=== PATIENT | female | born 1945 | race Caucasian/White ===

== ENCOUNTER 2025-04-17 10:37 | Emergency (ER) | payer MEDICARE, SELFPAY ==
--- NOTE | ~2025-04-17 | XR_ITS ---
EXAMINATION: XR shoulder RT min 2V DATE: 04/17/2025 11:32 INDICATION: Right shoulder injury post fall onto hardwood floor TECHNIQUE: AP internally and externally rotated, AP oblique externally rotated and transscapular Y views of the right shoulder were obtained. COMPARISON: None FINDINGS: Normal alignment. No fracture.Severe right acromioclavicular osteoarthritis. Mild to moderate glenohumeral osteoarthritis. Small subacromial spurs. Visualized portion of the lungs are clear. Soft tissues are unremarkable. IMPRESSION: Severe right acromioclavicular and mild to moderate glenohumeral osteoarthritis. No acute osseous abnormality. Reviewed, dictated and finalized at location A. CTOR OF FIELD COORDINATION IMPRESSION: Severe right acromioclavicular and mild to moderate glenohumeral osteoarthritis . No acute osseous abnormality.
[2025-04-17 10:48] VITALS: BP 114/44; PULSE 60; RESP 20; TEMP 36.4; O2SAT 98
--- NOTE | 2025-04-17 10:55 | ED.UPPEXIN ---
HPI - Extremity Injury (Upper) General Chief Complaint: Extremity Injury, Upper Stated Complaint: Right Shoulder Pain/Abdominal Pain Time Seen by Provider: 04/17/25 10:56 Source: patient, RN notes reviewed, old records reviewed and other (home health caregiver) Mode of arrival: wheelchair Limitations: no limitations History of Present Illness HPI narrative: 79 year old female presents per wheelchair accompanied by home help worker with complaints of fall in her home onto the hardwood floor 9 days ago with no LOC,reports she did not hit her head, patient is on blood thinners Patient reports pain to her right shoulder with full ROM noted, no bruising. Patient states she just tripped causing fall, home health worker reports that patient is suppose to use walker and she is not consistent with using it. Patient also reports that she has some lower abdominal pain and some urinary frequency for the past week,states that she has had UTI's in the past.Patient reports that she is in the process of changing doctors and did call new doctors office and was told that she hadn't been seen as new patient yet to go to ED. Patient reports that she has not taken her am medications yet this morning because her caregiver hadn't filled her medication dispenser. Cautioned that her blood pressure was low today that she should be monitoring at home and keep record. She saw her present MD nurse practitioner earlier this month that she can follow up with them prior to new MD appointment. MD complaint: injury to: right and shoulder Onset (ago): day(s) (9 days ago) Other injuries: none Handedness: right Place: home Severity scale (1-10): 9 Treatments prior to arrival: other (Tylenol) Related Data Home Medications ?Medication ?Instructions ?Recorded ?Confirmed ?Last Taken ?Type amlodipine 10 mg tablet mg 04/17/25 Unknown History apixaban 5 mg tablet (Eliquis) mg 04/17/25 Unknown History atorvastatin 40 mg tablet mg 04/17/25 Unknown History buspirone 5 mg tablet mg 04/17/25 Unknown History citalopram 20 mg tablet mg 04/17/25 Unknown History clopidogrel 75 mg tablet mg 04/17/25 Unknown History furosemide 20 mg tablet mg 04/17/25 Unknown History lisinopril 40 mg tablet mg 04/17/25 Unknown History metoprolol tartrate 50 mg tablet mg 04/17/25 Unknown History omeprazole 20 mg capsule,delayed mg 04/17/25 Unknown History release Allergies Allergy/AdvReac Type Severity Reaction Status Date / Time No Known Allergies Allergy Verified 04/17/25 10:57 Review of Systems Review of Systems: CONSTITUTIONAL: Denies fever, chills, or sweats. EYES: Denies visual changes, redness, or discharge. ENT: Denies rhinorrhea, congestion, sore throat, or otalgia. CARDIOVASCULAR: Denies chest pain, palpitations, or edema. RESPIRATORY: Denies cough or dyspnea. GASTROINTESTINAL: Reports lower abdominal pain,with urinary frequency, denies any nausea, vomiting, or diarrhea. GENITOURINARY: Denies dysuria, states some supra puvic discomfort and urinary frequency no hematuria or flank pain.. SKIN: Denies rash or itching. MUSCULOSKELETAL: Denies back pain, reports right shoulder pain from fall, or myalgia. NEUROLOGIC: Denies headache, numbness, or weakness. PSYCHIATRIC: Reports history of anxiety or depression. All systems reviewed & are unremarkable except as noted in HPI and below PMFSH Past Medical History Medical History (Updated 04/18/25 @ 14:16 by Rose Eugene APRN) GERD (gastroesophageal reflux disease) Skin cancer Hypertension UTI (urinary tract infection) Pneumonia CHF (congestive heart failure) COPD (chronic obstructive pulmonary disease) Surgical History Surgical History (Updated 04/17/25 @ 11:28 by Rose Eugene APRN) History of left knee replacement Status post surgical removal of malignant neoplasm of skin Hx of appendectomy History of cholecystectomy History of hysterectomy Social History Social History (Updated 04/17/25 @ 11:20 by Rose Eugene APRN) Smoking packs per day: 0.5 Smoking cigarettes per day: 10.0 Years smoked: 50 Smoking pack-years: 25.00 Smoking status: Current every day smoker Tobacco type: cigarettes Alcohol intake: never Substance use: never Living arrangements: with family Gender identity (if verbalized by the patient): Female Comments At time of signature, agree with nursing past medical, surgical, social and family history. There is no relevant family history pertinent to the presenting complaint Exam Narrative: GENERAL: chronic ill-appearing, well-nourished, unkept clothes dirty,and in no acute distress. HEAD: Normocephalic, atraumatic. EYES: PERRLA and EOMI. ENT: Nares clear, no rhinorrhea or epistaxis. Mucous membranes moist.TM's normal throat pink with no swelling. NECK: Supple.no lymphadenopathy CHEST: Clear to auscultation. No respiratory distress. no cough noted SAO2 98% on room air HEART: Regular rate and rhythm. No murmur heard. Normal peripheral pulses. ABDOMEN: Soft, tender over suprapubic area nondistended, normal active bowel sounds.reports urinary frequency denies any flank pain EXTREMITIES: Normal range of motion. No edema. Reports right shoulder pain since fall which patient reports occurred 9 days ago with no stated LOC, denies hitting head, Reports that she tripped states that right knee needs to be replaced but not surgical candidate.Patient reports that pain to shoulder increases with movement, equipment planner full ROM of shoulder noted pulses palpable to right arm of adequate quality. SKIN: Warm, dry, no rash. NEURO: No focal deficits. Alert and oriented x3. Course Course Level of Care: Express Care Visit Vital Signs Vital signs: Vital Signs Temperature 36.4 C 04/17/25 10:48 Pulse Rate 60 04/17/25 10:48 Respiratory Rate 20 04/17/25 10:48 Blood Pressure 114/44 L 04/17/25 10:48 Pulse Oximetry 98 04/17/25 10:48 Oxygen Delivery Room Air 04/17/25 10:48 Temperature 36.4 C 04/17/25 10:48 Pulse Rate 60 04/17/25 10:48 Respiratory Rate 20 04/17/25 10:48 Blood Pressure 100/46 L 04/17/25 12:00 Pulse Oximetry 98 04/17/25 10:48 Oxygen Delivery Room Air 04/17/25 10:48 reviewed MDM MDM Narrative Medical decision making narrative: 79 year old female presents to express care with youth care worker with complaints of fall 9 days ago hitting her right shoulder on hardwood floor with continued pain to shoulder voiced, Patient reports no LOC at time of fall and did not hit head, patient is on daily blood thinners but reports she doesn't know why she takes Eliquis and Plavix both. She states she takes Plavix to keep her from having stroke. Patient also has complaints of suprapubic pain and urinary frequency for 1 week with stated history of previous URI's with urine nitrite positive with leukocytes and blood present in urine dip. x-ray shows no fracture but degenerative changes to right shoulder. Antibiotic ordered of Augmentin for UTI. Patient instructed to use topical OTC medications to right shoulder and use Tylenol for pain. Patient also instructed to monitor blood pressure and keep record. Anticipatory guidance and reviewed reasons to seek care in the ED with understanding voiced. Instructed to call prewsent physician's office for follow up. Differential Diagnosis Differential Diagnosis: Differential diagnostic considerations for female urogenital? issues include urinary tract infection, bacterial vaginosis, cervicitis, ovarian cyst, vaginitis, STI exposure, ovarian torsion, ectopic , cyst of Bartholin?s gland, cystitis, dysmenorrhea.?? Differential diagnostic considerations for upper extremity injury include sprain/strain of wrist, fracture of wrist, finger sprain, dislocation of finger, fracture of hand, dislocation of shoulder, fracture of humerus, fracture of clavicle, laceration, tendon injury, carpal tunnel syndrome.? Lab Data MDM Lab Attestation statement: I personally reviewed the patient's lab results. Lab results narrative: Urine dip: glucose negative bilirubin negative ketone negative specific gravity 1.025 blood 1+ pH 6.0 protein 1+ urobilinogen 0.2 nitrite positive leukocyte 2+ Labs: Lab Results 04/17/25 Range/Units 11:20 POC Urine Color Yellow POC Urine Clarity Cloudy POC Urine pH 6.0 POC Ur Specif [place] 1.025 POC Urine Protein 1+ (Negative) POC Ur Glucose (UA) Negative (Negative) POC Urine Ketones Negative (Negative) POC Urine Blood 1+ (Negative) POC Urine Nitrite Positive (Negative) POC Urine Bilirubin Negative (Negative) POC Urine Urobilinogen 0.2 POC U Leukocyte Esteras 2+ (Negative) reviewed Imaging Data Attestation: I personally reviewed and interpreted this imaging study as follows: My impression: no fracture, severe right acromioclavicular and mild to moderate glenohumeral osteoarthritis Radiologist's impression: ITS Impressions Shoulder X-Ray 04/17/25 11:45 IMPRESSION: Severe right acromioclavicular and mild to moderate glenohumeral osteoarthritis. No acute osseous abnormality. [address] [place] [address] XRay Report Signed Patient: KatheGabyTheresa J : 1945 MR#: [id number] Age: 79 Acct:[id number] Loc: [facility] ADM Date: 04/17/[address]: Ordering Physician: Rose Eugene APRN Date of Service: 04/17/25 Procedure(s): XR shoulder RT min 2V Accession Number(s): [id number] cc: Kailey Cruz MD; Rose Eugene APRN~ EXAMINATION: XR shoulder RT min 2V DATE: 04/17/2025 11:32 INDICATION: Right shoulder injury post fall onto hardwood floor TECHNIQUE: AP internally and externally rotated, AP oblique externally rotated and transscapular Y views of the right shoulder were obtained. COMPARISON: None FINDINGS: Normal alignment. No fracture.Severe right acromioclavicular osteoarthritis. Mild to moderate glenohumeral osteoarthritis. Small subacromial spurs. Visualized portion of the lungs are clear. Soft tissues are unremarkable. IMPRESSION: Severe right acromioclavicular and mild to moderate glenohumeral osteoarthritis. No acute osseous abnormality. Reviewed, dictated and finalized at location A. NE LATHE OPERATOR Please be advised this is a medical document. It is intended for [id number] communication. It is written in medical language and may contain unfamiliar abbreviations or verbiage. Medical documents are intended to carry relevant information, facts as evident, and the clinical opinion of the practitioner at the time of the encounter. This report may have been done utilizing a voice recognition system. Attempts have been made to correct errors. However, there may be uncorrected grammatical, spelling, and recognition errors present. The file time of this note does not necessarily represent the time of service. Dictated By: Duy Godoy MD 04/17/25 1145 Signed By: <Electronically signed by Duy Godoy MD in OV> Critical Care Time Critical Care Time Critical Care Time: No Discharge Plan Discharge Clinical Impression: Pain in right shoulder, Acute UTI Patient Disposition: Home Condition: Stable Instructions: Antibiotic Form, Urinary Tract Infection in Women (ED), Osteoarthritis (ED) Additional Instructions: Increase fluids especially cranberry juice and water Avoid caffeine and carbonated beverages Antibiotic as directed Tylenol/ for pain or fever Follow-up with her primary care provider if further problems or concerns Recheck if you have fever over 101, nausea and vomiting. may use Salonpas, Myron Mendenhall with lidocaine topical to right shoulder or Tylenol follow-up with orthopedic surgeon if continued problems with shoulder monitor your blood pressure and keep record follow-up with your physician you can take Tylenol arthritis for your pain only since you are on blood thinners If your symptoms persist, change or worsen significantly before you can contact your personal physician then please, without delay, go to the emergency department for further evaluation. Follow-up with PCP in 7-10 days or sooner if needed stop smoking Patient Language: Jordanian Prescriptions: New amoxicillin-pot clavulanate 875-125 mg tablet 1 tablet PO Q12H Qty: 20 0RF Rx Instructions: take with food recommend you take a probiotic or eat Activia yogurt while on this medication No Action atorvastatin 40 mg tablet buspirone 5 mg tablet clopidogrel 75 mg tablet citalopram 20 mg tablet amlodipine 10 mg tablet metoprolol tartrate 50 mg tablet omeprazole 20 mg capsule,delayed release(DR/EC) furosemide 20 mg tablet lisinopril 40 mg tablet Eliquis 5 mg tablet Follow-up/Referrals: Anthony,MD Kailey [Primary Care Provider, [facility]] Time of Disposition: 11:56 Quality [place] Coma Scale Eyes: Open Verbal: Oriented and Alert Motor: Follows Commands [place] Coma Total Score: 15
--- OUTSIDE RECORDS SUMMARY | 2025-04-17 11:09 | XMS_ITS | Encounter Summary ---
Author Organization [facility] Address [address] [place] [address] Care Team Providers Care Dry Cell Tester Name Role Phone Unavailable Primary Care Provider Unavailabl e Encounter Details Date Type Department Care Team (Late st Contact Info) Description 03/01/2020 Lab Requisition [facility] [address] [place] [id number] Tirso Kim Jr., MD [address] [place] [address] Social History Tobacco Use Types Packs/Day Years Used Date Smoking Tobacco: Never Assessed Comments Unknown Sex and Gender Information Value Date Recorded Sex Assigned at Not on file Legal Sex Female 12:52 PM 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 Gender Identity Not on file Sexual Orientation Not on file documented as of this encounter Plan of Treatment Not on file documented as of this encounter Procedures Procedure Name Priority Date/Time Associated Diagnosis Comments DERMATOPATHOLOGY Routine 02/29/2020 12:0 0 AM 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 documented in this encounter Results * DERMATOPATHOLOGY (02/29/2020 12:00 AM 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) Case Report Dermatopathology Report Case: [id number] Authorizing Provider: Tirso Kim Jr., MD Collected: 02/29/2020 12:00 AM Ordering Location: [facility] Received: 03/01/2020 01:11 PM Pathologist: Humphrey Fernandez MD Specimens: A) - Skin, left lateral caodaism B) - Skin, left tragus C) - Skin, right nasal ala D) - Skin, right inferior central malar cheek E) - Skin, upper sternum F) - Skin, middle sternum G) - Skin, right medial superior chest H) - Skin, left anteriior lateral proximal upper arm I) - Skin, left proximal dorsal forearm J) - Skin, right superior latreal upper back K) - Skin, left superior medial upper back L) - Skin, left superior lateral lower back 0 5:20 PM 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 DERMATOPATHOLOGY LABORATORY Final Diagnosis Specimen A. SKIN, left lateral caodaism: BASAL CELL CARCINOMA, NODULAR TYPE (C44.319) Specimen B. SKIN, left tragus: BASAL CELL CARCINOMA, PIGMENTED (C44.219) Specimen C. SKIN, right nasal ala: ACTINIC KERATOSIS (L57.0) CHRONIC PERIFOLLICULITIS (L73.8) (see microscopic description) Specimen D. SKIN, right inferior central malar cheek: BASAL CELL CARCINOMA, INFILTRATIVE PATTERN (C44.319) Specimen E. SKIN, upper sternum: BASAL CELL CARCINOMA, PIGMENTED (C44.519) Specimen F. SKIN, middle sternum: SEBORRHEIC KERATOSIS, MACULAR (L82.1) POST-INFLAMMATORY PIGMENT ALTERATION (L81.9) Specimen G. SKIN, right medial superior chest: LICHEN PLANUS-LIKE KERATOSIS (BENIGN LICHENOID KERATOSIS) (L82.1) Specimen H. SKIN, left anteriior lateral proximal upper arm: BASAL CELL CARCINOMA, NODULAR TYPE (C44.619) Specimen I. 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 SKIN, right superior latreal upper back: BASAL CELL CARCINOMA, NODULAR TYPE (C44.519) Specimen K. SKIN, left superior medial upper back: BASAL CELL CARCINOMA, NODULAR TYPE (C44.519) Specimen L. SKIN, left superior lateral lower back: BASAL CELL CARCINOMA, SUPERFICIAL MULTIFOCAL (C44.519) 0 5:20 PM 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 DERMATOPATHOLOGY LABORATORY at 1720 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 Clinical History A-B: Basal cell carcinoma. C: Basal cell carcinoma vs dilated pore. D-H: Basal cell carcinoma. G: Squamous cell carcinoma vs irritated seborrheic keratosis. . 0 5:20 PM 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 DERMATOPATHOLOGY LABORATORY Gross Description Specimen A: Received is one formalin filled container labeled with the patient's name and designated left lateral caodaism. The specimen consists of a shave biopsy (2 pieces) measuring [id number], bisected, & [id number]. Jar 0. Specimen B: Received is one formalin filled container labeled with the patient's name and designated left tragus. The specimen consists of a shave biopsy measuring [id number]. Jar 0. Specimen C: Received is one formalin filled container labeled with the patient's name and designated right nasal ala. The specimen consists of a shave biopsy measuring [id number]. Jar 0. Specimen D: Received is one formalin filled container labeled with the patient's name and designated right inferior central malar cheek. The specimen consists of a shave biopsy measuring [id number]. Jar 0. Specimen E: Received is one formalin filled container labeled with the patient's name and designated upper sternum. The specimen consists of a shave biopsy measuring [id number]. Jar 0. Specimen F: Received is one formalin filled container labeled with the patient's name and designated middle sternum. The specimen consists of a shave biopsy measuring [id number]. Jar 0. Specimen G: Received is one formalin filled container labeled with the patient's name and designated right medial superior chest. The specimen consists of a shave biopsy measuring [id number]. Jar 0. Specimen H: Received is one formalin filled container labeled with the patient's name and designated left anteriior lateral proximal upper arm. The specimen consists of a shave biopsy measuring 20q3i1of. Jar 0. Specimen I: Received is one formalin filled container labeled with the patient's name and designated left proximal dorsal forearm. The specimen consists of a shave biopsy measuring [id number]. Jar 0. Specimen J: Received is one formalin filled container labeled with the patient's name and designated right superior latreal upper back. The specimen consists of a shave biopsy measuring 1u3a8pl. Jar 0. Specimen K: Received is one formalin filled container labeled with the patient's name and designated left superior medial upper back. The specimen consists of a shave biopsy measuring 0e4u9by. Jar 0. Specimen L: Received is one formalin filled container labeled with the patient's name and designated left superior lateral lower back. The specimen consists of a shave biopsy measuring [id number]. Jar 0. 0 5:20 PM [facility] DERMATOPATHOLOGY LABORATORY Microscopic Description Specimen A. SKIN, left lateral caodaism: Within the dermis there are aggregates of basaloid cells with a high nuclear to cytoplasmic ratio and peripheral palisading. Specimen B. SKIN, left tragus: There are aggregates of basaloid cells with a high nuclear to cytoplasmic ratio and peripheral palisading. There is abundant melanin. Specimen C. SKIN, right nasal ala: There is focal parakeratosis. The lower half of the epidermis shows disorderly maturation of keratinocytes with nuclear pleomorphism. Sections show a perifollicular lymphohistiocytic infiltrate. Additional deeper sections were obtained and reviewed. Specimen D. SKIN, right inferior central malar cheek: Within the dermis there are nodular aggregates of basaloid cells associated with fibromyxoid stroma and epithelial-stromal clefts. At the advancing margin of the neoplasm, there are smaller angulated nests that infiltrate the dermis. Specimen E. SKIN, upper sternum: There are aggregates of basaloid cells with a high nuclear to cytoplasmic ratio and peripheral palisading. There is abundant melanin. Specimen F. SKIN, middle sternum: Sections show a relatively broad, flat proliferation of small keratinocytes. The surface is gently papillated, and there is increased basilar pigmentation. Sections show abundant melanin within melanophages around the superficial vascular plexus. Specimen G. SKIN, right medial superior chest: The epidermis is mildly acanthotic. There is a lichenoid infiltrate with vacuolar changes of basilar keratinocytes and scattered necrotic keratinocytes. Specimen H. SKIN, left anteriior lateral proximal upper arm: Within the dermis there are aggregates of basaloid cells with a high nuclear to cytoplasmic ratio and peripheral palisading. Specimen I. SKIN, left proximal dorsal forearm: Sections reveal parakeratosis, acanthosis and keratinocyte dysmaturation which is most prominent in the lower epidermis. Focal nests are present in the dermis. Specimen J. SKIN, right superior latreal upper back: Within the dermis there are aggregates of basaloid cells with a high nuclear to cytoplasmic ratio and peripheral palisading. Specimen K. SKIN, left superior medial upper back: Within the dermis there are aggregates of basaloid cells with a high nuclear to cytoplasmic ratio and peripheral palisading. Specimen L. SKIN, left superior lateral lower back: Attached to the undersurface of the epidermis, there are small aggregates of basaloid cells with a high nuclear to cytoplasmic ratio and peripheral palisading. 0 5:20 PM [facility] DERMATOPATHOLOGY LABORATORY Disclaimer An external and internal positive and negative controls are appropriate for the histochemical, immunohistochemical and immunofluorescence stain(s) in this case (if any), except where stated explicitly. The performance characteristics of the stain(s) cited in this report were developed and its performance characteristic determined by the Dermatopathology Laboratory at [facility], directed by Dr. Mitali Fernandez. These tests need not be, and therefore are not, approved by the [place] Food and Drug Administration. The tests are used for clinical purposes. Billing Codes Specimen Charges Stain Charges 05496 [id number] [id number] 1 1 1 1 1 1 1 1 1 1 1 1 0 5:20 PM 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 DERMATOPATHOLOGY LABORATORY Embedded Images 0 5:20 PM 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 DERMATOPATHOLOGY LABORATORY Pathology/Cytology TISSUE SPECIMEN FROM SKIN / Unknown 02/29/2020 03/01/2020 1:11 PM 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 Miscellaneous samples (specimen) TISSUE SPECIMEN FROM SKIN / Unknown 02/29/2020 03/01/2020 1:11 PM 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 Miscellaneous samples (specimen) TISSUE SPECIMEN FROM SKIN / Unknown 02/29/2020 03/01/2020 1:11 PM 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 Miscellaneous samples (specimen) TISSUE SPECIMEN FROM SKIN / Unknown 02/29/2020 03/01/2020 1:11 PM 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 Miscellaneous samples (specimen) TISSUE SPECIMEN FROM SKIN / Unknown 02/29/2020 03/01/2020 1:11 PM 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 Miscellaneous samples (specimen) TISSUE SPECIMEN FROM SKIN / Unknown 02/29/2020 03/01/2020 1:11 PM 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 Miscellaneous samples (specimen) TISSUE SPECIMEN FROM SKIN / Unknown 02/29/2020 03/01/2020 1:11 PM 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 Miscellaneous samples (specimen) TISSUE SPECIMEN FROM SKIN / Unknown 02/29/2020 03/01/2020 1:11 PM 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 Miscellaneous samples (specimen) TISSUE SPECIMEN FROM SKIN / Unknown 02/29/2020 03/01/2020 1:11 PM 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 Miscellaneous samples (specimen) TISSUE SPECIMEN FROM SKIN / Unknown 02/29/2020 03/01/2020 1:11 PM 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 Miscellaneous samples (specimen) TISSUE SPECIMEN FROM SKIN / Unknown 02/29/2020 03/01/2020 1:11 PM 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 Miscellaneous samples (specimen) TISSUE SPECIMEN FROM SKIN / Unknown 02/29/2020 03/01/2020 1:11 PM 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 us Tirso Kim Jr., MD LAB - PATHOLOGY/CYTOLOG Y ORDERABLES Final Result DERMATOPATHOLOGY LABORATORY [facility] - Department of Dermatology [facility] [address] [place] [address], [address] [phone] documented in this encounter Visit Diagnoses Not on filedocumented in this encounter
--- OUTSIDE RECORDS SUMMARY | 2025-04-17 11:09 | XMS_ITS | Clinical Summary ---
Author Organization [facility] Address [address] [place] [address] Care Team Providers Care Chore Tender Name Role Phone Unavailable Primary Care Provider Unavailabl e Source Comments [facility] Resource Interactive,non-owned Affiliates and Associated Physician Practices is amultiple site organization consisting of ambulatory clinics and hospital sitesin [place], [place], [place] and [place]. This disclosure is being madepursuant to the Care Everywhere program and may not contain all information available regarding this patient. 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 Gender Identity Not on file Sexual Orientation Not on file Plan of Treatment Health Maintenance Due Date Last Done Comments BONE DENSITY TESTING 1945 DTAP/TDAP/TD VACCINES (1 - Tdap) 11/14/1962 PNEUMOCOCCAL VACCINE 50+ (1 of 1 - PCV) 11/14/1993 ZOSTER VACCINE (1 of 2) 11/14/1993 Respiratory Syncytial Virus (RSV) Vaccine Pt: or over 60 yrs (1 - 1-dose 75+ series) 11/14/2018 DEPRESSION SCREENING 04/20/2024 MEDICARE AWV CALENDAR YEAR 2024 COVID-19 VACCINE ( - 2024-2 6 season) 2024 INFLUENZA VACCINE (#1) 2024 9, 05/15/2017, 12/19/2012 HEPATITIS B VACCINE Aged Out No longe r eligible based on patient's age to complete this topic HIB VACCINE Aged Out No longer eligi ble based on patient's age to complete this topic HPV VACCINE Aged Out No longer eligi ble based on patient's age to complete this topic MENINGOCOCCAL (Group B) VACCINE SHARED DECISION-MAKING Aged Out No longer eligible based on patient's age to complete this topic MENINGOCOCCAL GROUPS A/C/Y/W VACCINE Aged Out No longer eligible b ased on patient's age to complete this topic Insurance [employer] MANAGED MEDICARE ADV
--- OUTSIDE RECORDS SUMMARY | 2025-04-17 11:09 | XMS_ITS | Encounter Summary ---
Author Organization [facility] Address [address] [place] [address] Care Team Providers Care Block Layer Name Role Phone Chavez Orellana MD Primary Care Provider [phone] Edy Perez MD Unavailable Prakash Bryan MD Unavailable [phone] Hira Buchanan MD Primary Care Provider [phone] Patrick Velasco MD Unavailable Encounter Details Date Type Department Care Team (Late st Contact Info) Description 08/13/2022 Telephone [facility] Cardiac Catheterization [address] [place] [address] Beverly Rosales RN Social History Tobacco Use Types Packs/Day Years Used Date Smoking Tobacco: Former Cigarettes Q uit: 07/10/2022 Smokeless Tobacco: Never Comments:Smoking History Pac ks/day: 1 Packs Alcohol Use Standard Drinks/Week Comments No 0 (1 standard drink = 0.6 oz pur e alcohol) AUDIT-C Answer Date Recorded Q1: How often do you have a drink containing alc ohol? Never 07/24/2022 Average Number of Drinks Not on file 023 Frequency of Binge Drinking Not on file 09/2022 Overall Financial Resource Strain (CARDIA) Answe r Date Recorded Difficulty of Paying Living Expenses Somewhat prakash rd 03/29/2019 PHQ-2 Answer Date Recorded PHQ-2 Total Score (If total score is 3 or more points, staff should administer the PHQ-9) 0 02/21/2022 [facility] [place] of Occupat ional Health - Occupational Stress Questionnaire Answer Date Recorded Feeling of Stress Only a little 03/29/2019 Exercise Vital Sign Answer Date Recorde d Days of Exercise per Week 0 days 2018 Minutes of Exercise per Session 0 min 03/29/2019 PRAPARE - Transportation Answer Date Re corded Lack of Transportation (Medical) Yes 05/12/2019 Lack of Transportation (Non-Medical) Yes 05/12/2019 Personal Safety Answer Date Recorded Have you ever been in or are you currently in a harmful physical or emotional relationship or is someone making you feel afraid or unsafe? 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 Gender Identity Not on file Sexual Orientation Not on file Occupation Industry Job Start Date Job End Date retired Not on file Not on file Not on file documented as of this encounter Plan of Treatment Upcoming Encounters Date Type Department Care Team (Late st Contact Info) Description 09/01/2025 9:09 AM CDT Hospital Encounter [facility] [address] [place] [address] Patrick Velasco MD [address] [place] [address] Prakash Bryan MD [address] [place] [address] 09/01/2025 9:09 AM CDT - 09/01/2025 9:39 AM CDT Surgery [facility] [address] [place] [address] Prakash Bryan MD [address] [place] [address] COLONOSCOPY Scheduled Procedures Name Priority Associated Diagnoses Date/Ti me COLONOSCOPY Colitis History of colonic polyps 09/01/2025 9:09 AM CDT documented as of this encounter Visit Diagnoses Not on filedocumented in this encounter Additional Health Concerns Infection Onset Date Last Indicated Resolved Time COVID: Suspected 06/09/2024 06/09/2024 06/09/2024 11:03 AM WILDLIFE ECOLOGIST COVID: Suspected 01/08/2025 01/08/2025 01/08/2025 10:42 AM CDT documented as of this encounter Care Teams Block Layer Relationship Specialty Start Date End Date Chavez Orellana MD [address] [place] [address] PCP - General Family Medicine 07/29/17 08/21/23 Hira Buchanan MD [address] [place] [address] PCP - General Internal Medicine 08/22/23 Edy Perez MD [address] [place] [address] Consulting Physician General Surgery 05/06/19 Prakash Bryan MD [address] [place] [address] Consulting Physician Gastroenterology 05/06/19 Patrick Velasco MD [address] [place] [address] [place] [address] Consulting Physician Gastroenterology 05/27/24 documented as of this encounter
--- OUTSIDE RECORDS SUMMARY | 2025-04-17 11:09 | XMS_ITS | Encounter Summary ---
Author Organization [facility] Address [address] [place] [address] Phone Care Team Providers Care Manager [employer] Retail Name Role Phone Hira Buchanan MD Primary Care Provider [phone] Reason for Visit * Reason Comments Medication Refill Encounter Details Date Type Department Care Team (Late st Contact Info) Description 09/16/2023 Refill [facility] - Internal Medicine - [place] [address] [place] [id number] Hira Buchanan MD [address] [place] [address] Medication Refill Social History Tobacco Use Types Packs/Day Years Used Date Smoking Tobacco: Every Day Cigarettes Passive Smoke Exposure: Current Smokeless Tobacco: Never Alcohol Use Standard Drinks/Week Comments No 0 (1 standard drink = 0.6 oz pur e alcohol) [facility] Utilities Answer Date Recorded In the past 12 months has [employer], gas, oil, or water [employer] threatened to shut off services in your home? No 07/09/2023 Social Connection and Isolation Panel Answer Date Recorded In a typical week, how many times do you talk on the phone with family, friends, or neighbors? More than three times a week 07/09/2023 How often do you get togethe r with friends or relatives? More than three times a week 07/09/2023 How often do you attend chur ch or zoroastrian services? Never 07/09/2023 Do you belong to any clubs o r organizations such as mormon groups, unions, fraternal or athletic groups, or school groups? No 07/09/2023 How often do you attend meet ings of the clubs or organizations you belong to? Never 07/09/2023 Are you , , di vorced, , never , or living with a partner? 07/09/2023 AUDIT-C Answer Date Recorded Q1: How often do you have a drink containing alcohol? Never 07/09/2023 Q2: How many drinks containi ng alcohol do you have on a typical day when you are drinking? Patient does not drink Q3: How often do you have si x or more drinks on one occasion? Never 07/09/2023 Overall Financial Resource Strain (CARDIA) Answe r Date Recorded How hard is it for you to pa y for the very basics like food, housing, medical care, and heating? Not hard at all 07/09/2023 PHQ-2 Answer Date Recorded Total Score - Questions 1-9 0 08/18 [facility] of Occupat ional [facility] - Occupational Stress Questionnaire Answer Date Recorded Do you feel stress - tense, restless, nervous, or anxious, or unable to sleep at night because your mind is troubled all the time - these days? Not at all 07/09/2023 Exercise Vital Sign Answer Date Recorde d On average, how many days pe r week do you engage in moderate to strenuous exercise (like a brisk walk)? 0 days 07/09/2023 On average, how many minutes do you engage in exercise at this level? 0 min 07/09/2023 Hunger Vital Sign Answer Date Recorded Within the past 12 months, y ou worried that your food would run out before you got the money to buy more. Never true 07/09/19 24 Within the past 12 months, t he food you bought just didn't last and you didn't have money to get more. Never true 07/09/2023 PRAPARE - Transportation Answer Date Re corded In the past 12 months, has l ack of transportation kept you from medical appointments or from getting medications? No 06/19 In the past 12 months, has l ack of transportation kept you from meetings, work, or from getting things needed for daily living? No 07/09/2023 Housing Stability Vital Sign Answer Blaise e Recorded In the last 12 months, was t here a time when you were not able to pay the mortgage or rent on time? No 07/09/2023 In the last 12 months, how many places have you lived? 6 07/09/2023 In the last 12 months, was t here a time when you did not have a steady place to sleep or slept in a senior living (including now)? No 07/09/2023 Education Answer Date Recorded What is the highest level of school you have completed or the highest degree you have received? GED or equivalent Sexually Active [employer] Comments Not Currently Comments No Sex and Gender Information Value Date Recorded Sex Assigned at Female 09/29/2023 10:49 AM CDT Legal Sex Female 11:44 PM CDT Gender Identity Female 09/29/2023 10:49 AM CDT Sexual Orientation Not on file documented as of this encounter Miscellaneous Notes * Telephone Encounter - Alisa Wallis RN - 09/16/2023 8:07 AM CDT Medication(s) refilled and signed per [facility] Chronic Medication Refill Standing Order for Pediatricand Adult Patients. Requested Prescriptions Pending Prescriptions Disp Refills metoprolol tartrate (LOPRESSOR) 50 MG Tablet [Pharmacy Med Name: Metoprolol Tartrate 50 MG Oral Tablet] 60 Tablet 0 Sig: Take 1 tablet by mouth twice daily Beta-Blockers Protocol Passed - 09/16/2023 6:50 AM Passed - BP on record in the past year Clinician-entered: BP Readings from Last 3 Encounters: 07/09/23 110/66 12/11/22 110/64 09/04/22 110/62 Patient-entered: No data recorded Passed - Visit with relevant provider in past 12 months or upcoming 90 days Recent Visits Date Type Provider Dept 07/09/23 Office Visit [facility] [place] 12/11/22 Office Visit [facility] [place] Showing recent visits within past 365 days and meeting all other requirements Future Appointments No visits were found meeting these conditions. Showing future appointments within next 90 days and meeting all other requirements documented in this encounter Plan of Treatment Upcoming Encounters Date Type Department Care Team (Late st Contact Info) Description 05/17/2025 9:20 AM MANAGER PAYER Office Visit [facility] - Primary Care - [place] [address] [place] [address] Hira Buchanan MD [address] [place] [address] documented as of this encounter Visit Diagnoses Not on filedocumented in this encounter Additional Health Concerns Infection Onset Date Last Indicated Resolved Time COVID - 19 06/03/2024 06/03/2024 06/03/2024 1:06 PM MANAGER PAYER Assessment Noted Time PHQ-9 Depression Total Score: 0 09/05/19 8:00 AM CDT documented as of this encounter Care Teams Manager [employer] Retail Relationship Specialty Start Date End Date Hira Buchanan MD PCP - General Internal Medicine 09/04/22 documented as of this encounter
--- OUTSIDE RECORDS SUMMARY | 2025-04-17 11:09 | XMS_ITS | Encounter Summary ---
Author Organization [facility] Address [address] [place] [address] Phone Care Team Providers Care Former Hand Name Role Phone Hira Buchanan MD Primary Care Provider [phone] Reason for Visit * Reason Onset Date Comments Medication Refill 09/11/2023 Encounter Details Date Type Department Care Team (Late st Contact Info) Description 09/11/2023 Refill [facility] [place] [phone] Jason Sorenson, PAC [address] [place], [place] [address] Medication Refill Social History Tobacco Use Types Packs/Day Years Used Date Smoking Tobacco: Every Day Cigarettes Passive Smoke Exposure: Current Smokeless Tobacco: Never Alcohol Use Standard Drinks/Week Comments No 0 (1 standard drink = 0.6 oz pur e alcohol) [facility] Utilities Answer Date Recorded In the past 12 months has [employer], gas, oil, or water [employer] threatened to shut off services in your [...] often do you attend chur ch or baptist services? Never 07/09/2023 Do you belong to any clubs o r organizations such as congregational groups, unions, fraternal or athletic groups, or [...] Total Score - Questions 1-9 0 08/18 [facility] of Occupat ional [facility] - Occupational Stress Questionnaire Answer Date Recorded [...] st Contact Info) Description 05/17/2025 9:20 AM SPOOL SALVAGER Office Visit [facility] - Primary Care - [place] [address] [place] [address] Hira Buchanan MD [address] [place] [address] documented as of this encounter Visit Diagnoses Diagnosis Other chronic pain- Primary documented in this encounter Additional Health Concerns Infection Onset Date Last Indicated Resolved Time COVID - 19 06/03/2024 06/03/2024 06/03/2024 1:06 PM SPOOL SALVAGER Assessment Noted Time PHQ-9 Depression Total Score: 0 09/05/19 8:00 AM CDT documented as of this encounter Care Teams Former Hand Relationship Specialty Start Date End Date Hira Buchanan MD PCP - General Internal Medicine 09/04/22 documented as of this encounter
--- OUTSIDE RECORDS SUMMARY | 2025-04-17 11:09 | XMS_ITS | Encounter Summary ---
Author Organization [facility] Address [address] [address] Care Team Providers Care Product Management Specialist Name Role Phone Unavailable Primary Care Provider Unavailabl e Encounter Details Date Type Department Care Team (Late st Contact Info) Description 03/22/2020 Lab Requisition [facility] [address] [place] [address] Tirso Kim Jr., MD [address] [place] [address] Social History Tobacco Use Types Packs/Day Years Used Date Smoking Tobacco: Never Assessed Comments Unknown Sex and Gender Information Value Date Recorded Sex Assigned at Not on file 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 Gender Identity Not on file Sexual Orientation Not on file documented as of this encounter Plan of Treatment Not on file documented as of this encounter Procedures Procedure Name Priority Date/Time Associated Diagnosis Comments DERMATOPATHOLOGY Routine 03/21/2020 12:0 0 AM COOK FROZEN DESSERT documented in this encounter Results * DERMATOPATHOLOGY (03/21/2020 12:00 AM COOK FROZEN DESSERT) Case Report Dermatopathology Report Case: [id number] Authorizing Provider: Tirso Kim Jr., MD Collected: 03/21/2020 12:00 AM Ordering Location: [facility] Received: 03/22/2020 12:22 PM Pathologist: Humphrey Fernandez MD Specimen: Skin, left proximal dorsal forearm 0 4:30 PM [facility] Final Diagnosis Specimen A. 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 Check margins. Previous Bx: [id number]. . 0 4:30 PM [facility] Gross Description Specimen A: Received is one formalin filled container labeled with the patient's name and designated left proximal dorsal forearm.The specimen consists of an ellipse measuring [id number] and is oriented with the notch at the 12 o'clock position labeled on the requisition as notch at 12 o'clock. The 9 to 3 o'clock margin is inked green. The 3 o'clock to 9 o'clock margin is inked black. The 9 o'clock tip is submitted in cassette 1. The 3 o'clock tip is submitted in cassette 2. The remainder of the ellipse is serially sectioned and submitted in cassettes 3-4. Jar 0. 0 4:30 PM [facility] Microscopic Description Specimen A. SKIN, left proximal dorsal forearm: Sections show focally laminated fibroplasia and prominent blood vessels. There are plump fibrocytes and inflammation. Reactive epidermal changes are also identified consistent with a prior biopsy site. No residual squamous cell carcinoma is identified. 0 4:30 PM [facility] Disclaimer An external and internal [...] purposes. Billing Codes Specimen Charges Stain Charges [id number] 0 4:30 PM [facility]ERMATOPATH[facility] Embedded Images 0 4:30 PM [facility] DERMATOP[facility]ORATORY Pathology/Cytolog y TISSUE SPECIMEN FROM SKIN / Unknown 03/21/2020 03/22/2020 12:22 PM COOK FROZEN DESSERT us Tirso Kim Jr., MD LAB - PATHOLOGY/CYTOLOG Y ORDERABLES Final Result DERMATOPATHOLOGY LABORATORY [facility] - Department of Dermatology [facility] [address] [place] [address], [address] [phone] documented in this encounter Visit Diagnoses Not on filedocumented in this encounter
--- OUTSIDE RECORDS SUMMARY | 2025-04-17 11:09 | XMS_ITS | Encounter Summary ---
Author Organization [facility] Address [address] [place] [address] Phone Care Team Providers Care Activities Counselor Name Role Phone Hira Buchanan MD Primary Care Provider [phone] Reason for Visit * Reason Comments Medication Refill Encounter Details Date Type Department Care Team (Late st Contact Info) Description 08/02/2023 Refill [facility] - Internal Medicine - [place] [address] [place] [id number] Hira Buchanan MD [address] [place] [address] Medication Refill Social History Tobacco Use Types Packs/Day Years Used Date Smoking Tobacco: Every Day Cigarettes Passive Smoke Exposure: Current Smokeless Tobacco: Never Alcohol Use Standard Drinks/Week Comments No 0 (1 standard drink = 0.6 oz pur e alcohol) [facility] Utilities Answer Date Recorded In the past 12 months has [employer], gas, oil, or water [employer] threatened to shut off services in your [...] often do you attend chur ch or yazidi services? Never 07/09/2023 Do you belong to any clubs o r organizations such as cheondoism groups, unions, fraternal or athletic groups, or [...] Total Score - Questions 1-9 0 08/18 [facility] of Occupat ional [facility] - Occupational Stress Questionnaire Answer Date Recorded [...] place to sleep or slept in a skilled nursing (including now)? No 07/09/2023 Education Answer Date [...] Telephone Encounter - Alisa Wallis RN - 08/03/2023 11:12 AM CDT Medication failed the protocol, provider to review and approve the medication order if appropriate. Requested Prescriptions Pending Prescriptions Disp Refills furosemide (LASIX) 20 MG Tablet [Pharmacy Med Name: Furosemide 20 MG Oral Tablet] 90 Tablet 0 Sig: Take 1 tablet by mouth once daily Diuretics Protocol Failed - 08/02/2023 3:15 PM Failed - Serum potassium on record in past 12 months POTASSIUM Date Value Ref Range Status 03/30/2022 4.0 3.5 - 5.1 mmol/L Final Failed - Serum sodium on record in past 12 months SODIUM Date Value Ref Range Status 03/30/2022 139 136 - 144 mmol/L Final Failed - GFR on record in past 12 months GFR, EST. NONAFRICAN Date Value Ref Range Status 03/30/2022 >60 >=60 Final Passed - Blood pressure on record in past 12 months Clinician-entered: BP Readings from Last 3 Encounters: 07/09/23 110/66 12/11/22 110/64 09/04/22 110/62 Patient-entered: No data recorded Passed - Visit with relevant provider in past 12 months or upcoming 90 days Recent Visits Date Type Provider Dept 07/09/23 Office Visit Hira Buchanan MD [facility] [place] 12/11/22 Office Visit Hira Buchanan MD [facility] [place] 09/04/22 Office [facility] [place] Showing recent visits within past 365 days and meeting all other requirements Future Appointments No visits were found meeting these conditions. Showing future appointments within next 90 days and meeting all other requirements Eliquis 5 MG Tablet [Pharmacy Med Name: Eliquis 5 MG Oral Tablet] 60 Tablet 0 Sig: TAKE 1 TABLET BY MOUTH TWICE DAILY -NEEDS APPOINTMENT Not Delegated - DOACs Protocol Failed - 08/02/2023 3:15 PM Failed - This refill cannot be delegated Failed - CBC on record in the past year WBC Date Value Ref Range Status 03/30/2022 10.05 4.00 - 12.00 10(3)/mcL Final RBC Date Value Ref Range Status 03/30/2022 4.16 3.80 - 5.30 10(6)/mcL Final HEMATOCRIT (HCT) Date Value Ref Range Status 03/30/2022 38.6 36.0 - 47.0 % Final HEMOGLOBIN (HGB) Date Value Ref Range Status 03/30/2022 12.3 12.0 - 15.8 g/dL Final MCV Date Value Ref Range Status 03/30/2022 92.8 82.0 - 96.0 fL Final MCH Date Value Ref Range Status 03/30/2022 29.6 26.0 - 34.0 pg Final MCHC Date Value Ref Range Status 03/30/2022 31.9 31.0 - 36.0 g/dL Final Failed - CMP on record in the past year SODIUM Date Value Ref Range Status 03/30/2022 139 136 - 144 mmol/L Final POTASSIUM Date Value Ref Range Status 03/30/2022 4.0 3.5 - 5.1 mmol/L Final CHLORIDE Date Value Ref Range Status 03/30/2022 102 100 - 110 mmol/L Final CO2, VENOUS Date Value Ref Range Status 03/30/2022 26 22 - 32 mmol/L Final ANION GAP Date Value Ref Range Status 03/30/2022 15.0 8.0 - 20.0 mmol/L Final GLUCOSE Date Value Ref Range Status 03/30/2022 123 (H) 70 - 99 mg/dL Final BUN Date Value Ref Range Status 03/30/2022 13 8 - 23 mg/dL Final CREATININE, BLOOD Date Value Ref Range Status 03/30/2022 0.65 0.60 - 1.10 mg/dL Final BUN/CREATININE RATIO Date Value Ref Range Status 03/30/2022 20 12 - 20 ratio Final TOTAL PROTEIN Date Value Ref Range Status 03/30/2022 6.4 6.0 - 8.3 g/dL Final ALBUMIN Date Value Ref Range Status 03/30/2022 3.7 3.5 - 5.2 g/dL Final Comment: The colormetric methods used for the determination of Albumin may lead to falsely elevated test results in patients suffering from renal failure or insufficiency due to interference with other proteins. A/G RATIO Date Value Ref Range Status 03/30/2022 1.4 1.0 - 2.0 Final CALCIUM Date Value Ref Range Status 03/30/2022 9.2 8.9 - 10.3 mg/dL Final T BILI Date Value Ref Range Status 03/30/2022 0.3 <=1.2 mg/dL Final SGOT (AST) Date Value Ref Range Status 03/30/2022 13 <=32 U/L Final SGPT (ALT) Date Value Ref Range Status 03/30/2022 13 <=41 U/L Final ALKALINE PHOSPHATASE Date Value Ref Range Status 03/30/2022 88 35 - 105 U/L Final GFR, EST. NONAFRICAN Date Value Ref Range Status 03/30/2022 >60 >=60 Final GFR, EST. Date Value Ref Range Status 03/30/2022 >60 >=60 Final GFR, ESTIMATED Date Value Ref Range Status 03/30/2022 >60 >=60 Final Comment: Creatinine Clearance is the preferred criteria for selecting drug dose adjustments in renally impaired patients. The GFR is provided as additional pertinent clinical information. GFR is reported in mL/min/1.73 sq m. Calculation based on the Chronic Kidney Disease Epidemiology Collaboration (CKD- EPI) equation refitwithout adjustment for race. Failed - Creatinine and GFR on record in the past year CREATININE, BLOOD Date Value Ref Range Status 03/30/2022 0.65 0.60 - 1.10 mg/dL Final GFR, ESTIMATED Date Value Ref Range Status 03/30/2022 >60 >=60 Final Comment: Creatinine Clearance is the preferred criteria for selecting drug dose adjustments in renally impaired patients. The GFR is provided as additional pertinent clinical information. GFR is reported in mL/min/1.73 sq m. Calculation based on the Chronic Kidney Disease Epidemiology Collaboration (CKD- EPI) equation refitwithout adjustment for race. GFR, EST. NONAFRICAN Date Value Ref Range Status 03/30/2022 >60 >=60 Final Passed - Visit with relevant provider in past 12 months or upcoming 90 days Recent Visits Date Type Provider Dept 07/09/23 Office Visit Hira Buchanan MD [facility] [place] 12/11/22 Office Visit Hira Buchanan MD [facility] [place] 09/04/22 Office Visit Hira Buchanan MD [facility] [place] Showing recent visits within past 365 days and meeting all other requirements Future Appointments No visits were found meeting these conditions. Showing future appointments within next 90 days and meeting all other requirements amLODIPine (NORVASC) 10 MG Tablet [Pharmacy Med Name: amLODIPine Besylate 10 MG Oral Tablet] 30 Tablet 0 Sig: TAKE 1 TABLET BY MOUTH ONCE DAILY (MUST MAKE APPOINTMENT) Calcium-Channel Blockers Protocol Passed - 08/02/2023 3:15 PM Passed - BP on record in the past year Clinician-entered: BP Readings from Last 3 Encounters: 07/09/23 110/66 12/11/22 110/64 09/04/22 110/62 Patient-entered: No data recorded Passed - Visit with relevant provider in past 12 months or upcoming 90 days Recent Visits Date Type Provider Dept 07/09/23 Office Visit Hira Buchanan MD [facility] [place] 12/11/22 Office Visit Hira Buchanan MD [facility] [place] 09/04/22 Office Visit Hira Buchanan MD [facility] [place] Showing recent visits within past 365 days and meeting all other requirements Future Appointments No visits were found meeting these conditions. Showing future appointments within next 90 days and meeting all other requirements documented in this encounter Plan of Treatment Upcoming Encounters Date Type Department Care Team (Late st Contact Info) Description 05/17/2025 9:20 AM B2B ACCOUNT EXECUTIVE Office Visit [facility] - Primary Care - [place] [address] [place] [id number] Hira Buchanan MD [address] [place] [address] documented as of this encounter Visit Diagnoses Not on filedocumented in this encounter Additional Health Concerns Infection Onset Date Last Indicated Resolved Time COVID - 19 06/03/2024 06/03/2024 06/03/2024 1:06 PM B2B ACCOUNT EXECUTIVE Assessment Noted Time PHQ-9 Depression Total Score: 0 09/05/19 8:00 AM CDT documented as of this encounter Care Teams Activities Counselor Relationship Specialty Start Date End Date Hira Buchanan MD PCP - General Internal Medicine 09/04/22 documented as of this encounter
--- OUTSIDE RECORDS SUMMARY | 2025-04-17 11:10 | XMS_ITS | Encounter Summary ---
Author Organization [facility] Address [address] [place] [address] Phone Care Team Providers Care Bartacker Name Role Phone Hira Buchanan MD Primary Care Provider [phone] Reason for Visit * Reason Comments Medication Refill Encounter Details Date Type Department Care Team (Late st Contact Info) Description 06/28/2023 Refill [facility] - Internal Medicine - [place] [address] [place] [id number] Hira Buchanan MD [address] [place] [address] Medication Refill Social History Tobacco Use Types Packs/Day Years Used Date Smoking Tobacco: Every Day Cigarettes Passive Smoke Exposure: Current Smokeless Tobacco: Never Alcohol Use Standard Drinks/Week Comments No 0 (1 standard drink = 0.6 oz pur e alcohol) PHQ-2 Answer Date Recorded Total Score - Questions 1-9 0 08/18 Education Answer Date Recorded What is the [...] Telephone Encounter - Alisa Wallis RN - 06/29/2023 9:17 AM CDT Medication failed the protocol, provider to review and approve the medication order if appropriate. Requested Prescriptions Pending Prescriptions Disp Refills Eliquis 5 MG Tablet [Pharmacy Med Name: Eliquis 5 MG Oral Tablet] 180 Tablet 0 Sig: Take 1 tablet by mouth twice daily Not Delegated - DOACs Protocol Failed - 06/28/2023 4:22 PM Failed - This refill cannot be [...] days Recent Visits Date Type Provider Dept 12/11/22 Office Visit Hira Buchanan MD [facility] [place] 09/04/22 Office Visit Hira Buchanan MD [facility] [place] Showing recent visits within past 365 days and meeting all other requirements Future Appointments No visits were found meeting these conditions. Showing future appointments within next 90 days and meeting all other requirements metoprolol tartrate (LOPRESSOR) 50 MG Tablet [Pharmacy Med Name: Metoprolol Tartrate 50 MG Oral Tablet] 60 Tablet 0 Sig: Take 1 tablet by mouth twice daily Beta-Blockers Protocol Passed - 06/28/2023 4:22 PM Passed - BP on record in the past year Clinician-entered: BP Readings from Last 3 Encounters: 12/11/22 110/64 09/04/22 110/62 03/30/22 102/57 Patient-entered: No data recorded Passed - Visit with relevant provider in past 12 months or upcoming 90 days Recent Visits Date Type Provider Dept 12/11/22 Office Visit Hira Buchanan MD [facility] [place] 09/04/22 Office Visit Hira Buchanan MD [facility] [place] Showing recent visits within past 365 days and meeting all other requirements Future Appointments No visits were found meeting these conditions. Showing future appointments within next 90 days and meeting all other requirements amLODIPine (NORVASC) 10 MG Tablet [Pharmacy Med Name: amLODIPine Besylate 10 MG Oral Tablet] 30 Tablet 0 Sig: TAKE 1 TABLET BY MOUTH ONCE DAILY (MUST MAKE APPT) Calcium-Channel Blockers Protocol Passed - 06/28/2023 4:22 PM Passed - BP on record in the past year Clinician-entered: BP Readings from Last 3 Encounters: 12/11/22 110/64 09/04/22 110/62 03/30/22 102/57 Patient-entered: No data recorded Passed - Visit with relevant provider in past 12 months or upcoming 90 days Recent Visits Date Type Provider Dept 12/11/22 Office Visit Hira Buchanan MD [facility] [place] 09/04/22 Office Visit Hira Buchanan MD [facility] Showing recent visits within past 365 days and meeting all other requirements Future Appointments No visits were found meeting these conditions. Showing future appointments within next 90 days and meeting all other requirements atorvastatin (LIPITOR) 40 MG Tablet [Pharmacy Med Name: Atorvastatin Calcium 40 MG Oral Tablet] 30 Tablet 0 Sig: TAKE 1 TABLET BY MOUTH NIGHTLY (MUST MAKE APPT) [facility] CoA Reductase Inhibitors Protocol Failed - 06/28/2023 4:22 PM Failed - Lipid panel in past 12 months No results found for: LDL, HDLCHOLESTE, CHOLESTEROL, TRIGLYCRIDES, VLDL, CHDL, HDLNON Failed - CMP in past 12 months SODIUM Date Value [...] (CKD- EPI) equation refitwithout adjustment for race. Passed - Visit with relevant provider in past 12 months or upcoming 90 days Recent Visits Date Type Provider Dept 12/11/22 Office Visit Hira Buchanan MD [facility] [place] 09/04/22 Office Visit Hira Buchanan MD [facility] [place] Showing recent visits within past 365 days and meeting all other requirements Future Appointments No visits were found meeting these conditions. Showing future appointments within next 90 days and meeting all other requirements omeprazole (PriLOSEC) 40 MG CAPSULE DELAYED RELEASE [Pharmacy Med Name: Omeprazole 40 MG Oral Capsule Delayed Release] 30 Capsule 0 Sig: Take 1 capsule by mouth once daily Proton Pump Inhibitors Protocol Passed - 06/28/2023 4:22 PM Passed - Visit with relevant provider in past 12 months or upcoming 90 days Recent Visits Date Type Provider Dept 12/11/22 Office Visit Hira Buchanan MD [facility] [place] 09/04/22 Office Visit Hira Buchanan MD [facility] [place] Showing recent visits within past 365 days and meeting all other requirements Future Appointments No visits were found meeting these conditions. Showing future appointments within next 90 days and meeting all other requirements documented in this encounter Plan of Treatment Upcoming Encounters Date Type Department Care Team (Late st Contact Info) Description 05/17/2025 9:20 AM RESEARCH PHARMACIST Office Visit [facility] - Primary Care - [place] [address] [place] [address] Hira Buchanan MD [address] [place] [address] documented as of this encounter Visit Diagnoses Not on filedocumented in this encounter Additional Health Concerns Infection Onset Date Last Indicated Resolved Time COVID - 19 06/03/2024 06/03/2024 06/03/2024 1:06 PM RESEARCH PHARMACIST Assessment Noted Time PHQ-9 Depression Total Score: 0 09/05/19 8:00 AM CDT documented as of this encounter Care Teams Bartacker Relationship Specialty Start Date End Date Hira Buchanan MD PCP - General Internal Medicine 09/04/22 documented as of this encounter
--- OUTSIDE RECORDS SUMMARY | 2025-04-17 11:10 | XMS_ITS | Encounter Summary ---
Author Organization [facility] Address [address] [place] [address] Phone Care Team Providers Care Veneer Repairer Machine Name Role Phone Hira Buchanan MD Primary Care Provider [phone] Reason for Visit * Reason Onset Date Comments Advice Only 01/05/2025 Encounter Details Date Type Department Care Team (Late st Contact Info) Description 01/05/2025 Telephone [facility] [address] [place] [address] Hira Buchanan MD [address] [place] [address] Advice Only Social History Tobacco Use Types Packs/Day Years Used Date Smoking Tobacco: Every Day Cigarettes Passive Smoke Exposure: Current Smokeless Tobacco: Never Alcohol Use Standard Drinks/Week Comments No 0 (1 standard drink = 0.6 oz pur e alcohol) [facility] Utilities Answer Date Recorded In the past 12 months has [employer], gas, oil, or water [employer] threatened to shut off services in your [...] often do you attend chur ch or baptism services? Never 07/09/2023 Do you belong to any clubs o r organizations such as uatsdin groups, unions, fraternal or athletic groups, or [...] Recorded Total Score - Questions 1-9 0 06/0 08/2024 [facility] of Occupat ional [facility] - Occupational Stress Questionnaire Answer Date [...] encounter Miscellaneous Notes * Telephone Encounter - Coty Lee RN - 01/06/2025 8:49 AM CDT Theresa Archuleta notified, verbalized understanding. * Telephone Encounter - Roxanna Whitehead APRN, CNP - 01/05/2025 4:26 PM CDT She should be feeling somewhat better after 3-4 days, if over the weekend she feels worse, go to PC * Telephone Encounter - Cecilia Hunter RN - 01/05/2025 1:12 PM CDT Situation: advice only Background: Patient contacting PCP office. Patient states she was seen in the office and prescribed an antibiotic and she is wondering how long it takes to make her feel better. She states her cough is a little better and her breathing is a little better but she is tired of being sick. Patient coughing while on phone. Assessment: Upon chart review, patient was seen in office on 01/02/25 and prescribed azithromycin and prednisone. She reports starting then about noon on 01/02/25. Patient would like to know when she will be feeling a lot better and when she should call back. Recommendation: Please advise patient on when she should start feeling a lot better and when she should call back if not feeling a lot better. Patient requests a call back with advice. Encounter routed to provider to notify. Discussed utilizing [facility] to: discuss if they would prefer a MyChart message or phone call response. Response is preferred via Phone Call. documented in this encounter Plan of Treatment Upcoming Encounters Date Type Department Care Team (Late st Contact Info) Description 05/17/2025 9:20 AM VENEER PRESS OPERATOR Office Visit [facility] - Primary Care - [place] [address] [place] [address] Hira Buchanan MD [address] [place] [address] documented as of this encounter Visit Diagnoses Not on filedocumented in this encounter Additional Health Concerns Assessment Noted Time PHQ-9 Depression Total Score: 0 09/23/19 25 12:05 PM CDT documented as of this encounter Care Teams Veneer Repairer Machine Relationship Specialty Start Date End Date Hira Buchanan MD PCP - General Internal Medicine 09/04/22 documented as of this encounter
--- OUTSIDE RECORDS SUMMARY | 2025-04-17 11:10 | XMS_ITS | Clinical Summary ---
Author Organization [facility] Address [address] [place] [address] Phone Care Team Providers Care Dog Pound Attendant Name Role Phone Hira Buchanan MD Primary Care Provider [phone] Allergies Active Allergy Reactions Criticality Noted Date Comments Propoxyphene Hallucinations Diphenhydramine-Acetaminophen Anxiety 2015 Oxycodone-Aspirin Hallucinations Medications Diclofenac Sodium (VOLTAREN) 1 % Gel Apply 2 g 4 times daily. 100 g 10/09/19 24 Active Additional Information Patient not taking.Reported on 02/01/2025 metOLazone (ZAROXOLYN) 2.5 MG Tablet TAKE 1 TABLET BY MOUTH EVERY OTHER DAY 45 Tablet 11/12/19 25 Active Eliquis 5 MG Tablet Take 1 tablet by mouth twice daily 60 Tablet 5 11/15/19 25 Active metoprolol tartrate (LOPRESSOR) 50 MG Tablet Take 1 Tablet by mouth 2 times daily. 180 Tablet 1 12/06/19 25 Active traMADol (ULTRAM) 50 MG TabletIndicatio ns:Right knee pain, unspecified chronicity TAKE 1 TABLET BY MOUTH EVERY 8 HOURS NEEDED FOR MILD OR MORE SEVERE PAIN 21 Tablet 12/09/19 25 Active atorvastatin (LIPITOR) 40 MG Tablet Take 1 tablet by mouth nightly 90 Tablet 1 12/17/19 25 Active omeprazole (PriLOSEC) 20 MG CAPSULE DELAYED RELEASE Take 1 capsule by mouth once daily 90 Capsule 1 12/17/19 25 Active traZODone (DESYREL) 50 MG Tablet TAKE 1 TABLET BY MOUTH NIGHTLY NEEDED FOR SLEEP 90 Tablet 12/31/19 25 Active albuterol 108 (90 Base) MCG/ACT Aerosol Solution INHALE 2 PUFFS BY MOUTH EVERY 6 HOURS NEEDED FOR WHEEZING 18 g 01/03/20 25 Active amLODIPine (NORVASC) 10 MG Tablet Take 1 tablet by mouth once daily 30 Tablet 3 02/18/20 25 Active clopidogrel (PLAVIX) 75 MG Tablet Take 1 tablet by mouth once daily 90 Tablet 02/29/20 25 Active busPIRone (BUSPAR) 5 MG Tablet TAKE 1 TABLET BY MOUTH THREE TIMES DAILY 270 Tablet 03/14/20 25 Active lisinopril (PRINIVIL, ZESTRIL) 40 MG Tablet Take 1 tablet by mouth once daily 90 Tablet 03/22/20 25 Active potassium chloride CR (KLORCON) 10 MEQ Tablet Controlled Release Take 1 tablet by mouth once daily 90 Tablet 03/29/20 25 Active furosemide (LASIX) 20 MG Tablet Take 1 tablet by mouth once daily 90 Tablet 04/10/20 25 Active citalopram (CeleXA) 20 MG Tablet Take 1 tablet by mouth once daily 30 Tablet 04/10/20 25 Active ondansetron (ZOFRAN) 4 MG Tablet TAKE 1 TABLET BY MOUTH EVERY 8 HOURS NEEDED FOR NAUSEA 15 Tablet 04/10/20 25 Active lisinopril (PRINIVIL, ZESTRIL) 40 MG Tablet Take 1 tablet by mouth once daily 30 Tablet 2 12/17/19 25 025 Discontinued potassium chloride CR (KLORCON) 10 MEQ Tablet Controlled Release Take 1 tablet by mouth once daily 90 Tablet 12/31/19 25 025 Discontinued furosemide (LASIX) 20 MG Tablet Take 1 tablet by mouth once daily 90 Tablet 12/31/19 25 025 Discontinued ondansetron (ZOFRAN) 4 MG Tablet TAKE 1 TABLET BY MOUTH EVERY 8 HOURS NEEDED FOR NAUSEA 15 Tablet 02/28/20 25 025 Discontinued citalopram (CeleXA) 20 MG Tablet Take 1 tablet by mouth once daily 30 Tablet 03/13/20 25 025 Discontinued Active Problems Problem Noted Date Diagnosed Date Other hyperlipidemia 09/04/2022 Paroxysmal atrial fibrillation 09/04/2022 Peripheral arterial disease 09/04/2022 Overview (12/11/2022): H/O Stents placement- Left Common Iliac and Left External Iliac arteries Centrilobular emphysema 09/04/2022 GERD without esophagitis 09/04/2022 Nonrheumatic aortic valve disorder 09/04/2022 Generalized anxiety disorder 09/04/2022 Essential hypertension, benign Tobacco abuse Encounters Date Type Department Care Team Description 04/10/20[facility] [address] [place] [address] Hira Buchanan MD Medication Refill 03/29/2025 Refill [facility] [address] [place] [address] Mariah Schilling APRN, [facility] Medication Refill 03/22/2025 [facility] [address] [place] [address] Hira Buchanan MD Medication Refill 03/14/2025 Refill [facility] [address] [place] [address] Fior Ocampo, [facility] Medication Refill 03/13/2025 [facility] [address] [place] [address] Hira Buchanan MD Medication Refill 02/28/2025 Refill [facility] [address] [place] [address] Hira Buchanan MD Medication Refill 02/27/2025 [facility] [address] [place] [address] Hira Buchanan MD Medication Refill 02/17/2025 Refill [facility] [address] [place] [address] Hira Buchanan MD Medication Refill 02/01/2025 10:45 AM CDT Office Visit [facility] - [place] - [place] [address] [place] [address] Fior Ocampo PAC Pneumonia due to infectious organism, unspecified laterality, unspecified part of lung (Primary Dx); Insomnia, unspecified type Discharge Disposition: Discharged to home or Selfcare 02/01/2025 Travel 01/17/2025 [facility]ill [facility] [place] [address] [place] [address] Hira Buchanan MD Medication Refill from Last 3 Months Immunizations Immunization Administration Dates Next Due Influenza Vaccine, Quadrivalent, PF 05/15/2017 Influenza Vaccine,unspecified Formulation 2012 Influenza, High-dose, Quadrivalent 02/21/2022 Influenza, Quadrivalent, Adjuvanted 03/31/2021 Influenza, high-dose, trivalent, PF 03/31/2019 Pneumococcal Vaccine - 13 Valent 11/30/2017 Pneumococcal Vaccine, Unspecified Formulation Pneumococcal conjugate PCV20 , polysaccharide [id number] conjugate, adjuvant, PF 12/11/2022 TDAP Vaccine 08/21/2023,03/21/2013 Tuberculin Skin Test; Purifi ed Protein Derivative Solutiol 09/11/2023,08/30/2023 Family History Relation Name Status Comments Father Mother Social History Tobacco Use Types Packs/Day Years Used Date Smoking Tobacco: Every Day Cigarettes Passive Smoke Exposure: Current Smokeless Tobacco: Never Tobacco Cessation:Ready to Q uit: No; Counseling Given: No Alcohol Use Standard Drinks/Week Comments No 0 (1 standard drink = 0.6 oz pur e alcohol) [facility] Utilities Answer Date Recorded In the past 12 months has [employer], gas, oil, or water company threatened to shut off services in your [...] often do you attend chur ch or samaritan services? Never 07/09/2023 Do you belong to any clubs o r organizations such as baptist groups, unions, fraternal or athletic groups, or [...] Score - Questions 1-9 0 06/0 08/2024 [facility] - Occupational Stress Questionnaire Answer Date [...] AM CDT Sexual Orientation Not on file Last Filed Vital Signs Vital Sign Reading Time Taken Comments Blood Pressure 122/66 02/01/2025 10:45 AM CDT Pulse 60 02/01/2025 10:45 AM CDT Temperature 36.5 C (97.7 F) 02/01/2025 10:45 AM CDT Respiratory Rate 12 02/01/2025 10:45 AM CDT Oxygen Saturation 98% 02/01/2025 10:45 AM CDT Inhaled Oxygen Concentration - - Weight 76.2 kg (168 lb) 02/01/2025 10:45 AM CDT Height 160 cm (5' 3) 01/02/2025 10:44 AM CDT Body Mass Index 29.76 01/02/2025 10:44 AM CDT Plan of Treatment Upcoming Encounters Date Type Department Care Team (Late st Contact Info) Description 05/17/2025 9:20 AM WOOL HAT HYDRAULICKER [facility] Visit [facility] - [place] [address] [place] [id number] Hira Buchanan MD [address] [place] [address] Health Maintenance Due Date Last Done Comments DEXA Bone Density 1945 Hepatitis C Virus (HCV) Screening 1945 Zoster Immunization (1 of 2) 11/14/1993 Medicare Initial AWV [id number] 04/20/2016 Respiratory Syncytial Virus (RSV) Immunization (Adult) (1 - 1-dose 75+ series) 11/14/2018 SARS-COV-2 Immunization ( - season) 2024 04/21/2021, 03/31/2021 Td Immunization Every 10 Years (Adults With 1 Tdap) 08/20/2033 08/21/2023, 03/21/2013 Influenza Immunization Discontinued , 03/31/2021, 03/31/2019, Additional history exists Pneumococcal Immunization (50+ years) Completed 12/11/2022, 11/30/2017, 12/19/2012 Pneumococcal Immunization Combined Discontinued 12/11/2022, 11/30/2017, 12/19/2012 DTaP/Tdap/Td Immunization Discontinued 08/21/2023, 05/2012 Hepatitis B Immunization Aged Out No longer eligible based on patient's age to complete this topic Human Papillomavirus (HPV) Immunization (No Doses Required) Completed Meningococcal Immunization (ACWY) Aged Out No longer eligible based on patient's age to complete this topic Rotavirus Immunization Aged Out No lo nger eligible based on patient's age to complete this topic Insurance [facility]IC[facility] Care Teams Dog Pound Attendant Relationship Specialty Start Date End Date Hira Buchanan MD PCP - General Internal Medicine 09/04/22
--- OUTSIDE RECORDS SUMMARY | 2025-04-17 11:10 | XMS_ITS | Encounter Summary ---
Author Organization [facility] Address [address] [place] [address] Phone Care Team Providers Care Rug Clipper Name Role Phone Hira Buchanan MD Primary Care Provider [phone] Reason for Visit * Reason Comments Medication Refill Encounter Details Date Type Department Care Team (Late st Contact Info) Description 02/25/2024 [facility]ill [facility] [place] [address] [place] [id number] Hira Buchanan MD [address] [place] [address] Medication Refill Social History Tobacco Use Types Packs/Day Years Used Date Smoking Tobacco: Every Day Cigarettes Passive Smoke Exposure: Current Smokeless Tobacco: Never Alcohol Use Standard Drinks/Week Comments No 0 (1 standard drink = 0.6 oz pur e alcohol) [facility] Utilities Answer Date Recorded In the past 12 months has [employer], gas, oil, or water [place] threatened to shut off services in your [...] often do you attend chur ch or cheondoism services? Never 07/09/2023 Do you belong to any clubs o r organizations such as zoroastrianism groups, unions, fraternal or athletic groups, or [...] Total Score - Questions 1-9 0 08/18 [facility] - Occupational Stress Questionnaire Answer Date [...] place to sleep or slept in a jail (including now)? No 07/09/2023 Education Answer Date [...] encounter Miscellaneous Notes * Telephone Encounter - Cecilia Ford RN - 02/25/2024 3:54 PM FLEET COORDINATOR Duplicate. Script sent to pharmacy 02/22/24 T COORDINATOR documented in this encounter Plan of Treatment Upcoming Encounters Date Type Department Care Team (Late st Contact Info) Description 05/17/2025 9:20 AM FLEET COORDINATOR Office Visit [facility] - [facility] - [place] [address] [place] [phone] Hira Buchanan MD [address] [place] [address] documented as of this encounter Visit Diagnoses Not on filedocumented in this encounter Additional Health Concerns Infection Onset Date Last Indicated Resolved Time COVID - 19 06/03/2024 06/03/2024 06/03/2024 1:06 PM FLEET COORDINATOR Assessment Noted Time PHQ-9 Depression Total Score: 0 09/05/19 23 8:00 AM CDT documented as of this encounter Care Teams Rug Clipper Relationship Specialty Start Date End Date Hira Buchanan MD PCP - General Internal Medicine 09/04/22 documented as of this encounter
--- OUTSIDE RECORDS SUMMARY | 2025-04-17 11:10 | XMS_ITS | Clinical Summary ---
Author Organization [facility] [address] [facility] lto Address [address] [place] [address] Care Team Providers Care Studio Producer Name Role Phone Edy Perez MD Unavailable Prakash Bryan MD Unavailable [phone] Hira Buchanan MD Primary Care Provider [phone] Patrick Velasco MD Unavailable Allergies Active Allergy Reactions Criticality Noted Date Comments Diphenhydramine Anxiety Low 12/04/2023 Oxycodone Hallucinations Medium Propoxyphene Hallucinations Medium Medications apixaban (ELIQUIS) 5 mg tabletIndications:a trial fibrillation Take 1 tablet (5 mg total) by mouth every 12 (twelve) hours 180 tablet 3 2 Active amLODIPine (NORVASC) 10 mg tablet Take 1 tablet (10 mg total) by mouth daily 90 tablet 3 Active clopidogreL (PLAVIX) 75 mg tablet Take 1 tablet (75 mg total) by mouth daily 30 tablet 11 3 Active omeprazole (PriLOSEC) 20 mg capsule Take 1 capsule by mouth once daily 90 capsule 3 Active traZODone (DESYREL) 50 mg tablet TAKE 1 TABLET BY MOUTH NIGHTLY NEEDED FOR SLEEP 90 tablet 3 Active busPIRone (BUSPAR) 5 mg tablet TAKE 1 TABLET BY MOUTH THREE TIMES DAILY 90 tablet 3 Active lisinopriL (PRINIVIL,ZESTRIL) 40 mg tablet Take 1 tablet by mouth once daily 90 tablet 3 Active metOLazone (ZAROXOLYN) 2.5 mg tablet Take 1 tablet (2.5 mg total) by mouth every other day 90 tablet 3 Active metoprolol tartrate (LOPRESSOR) 50 mg immediate release tabletIndications:E ssential hypertension Take 1 tablet by mouth twice daily 60 tablet 3 Active potassium chloride ER 10 mEq CR tablet Take 1 tablet by mouth once daily 90 tablet 4 Active atorvastatin (LIPITOR) 40 mg tablet Take 1 tablet (40 mg total) by mouth nightly 4 Active citalopram (CeleXA) 20 mg tablet Take 1 tablet (20 mg total) by mouth daily 4 Active furosemide (LASIX) 20 mg tablet Take 1 tablet (20 mg total) by mouth daily 4 Active acetaminophen 500 mg capsuleIndications: Pain Take 2 capsules (1,000 mg total) by mouth every 6 (six) hours 4 Active ondansetron ODT (ZOFRAN-ODT) 8 mg disintegrating tabletIndications:P revention of Post-Operative Nausea and Vomiting Take 1 tablet (8 mg total) by mouth every 8 (eight) hours as needed for nausea or vomiting 12 tablet 1 4 Active Active Problems Problem Noted Date Diagnosed Date Mild malnutrition 06/16/2024 Constipation 06/08/2024 Colitis 06/08/2024 Abdominal pain 06/07/[address] of the abdomen 05/27/2024 Hypokalemia 05/26/2024 Gastroenteritis 05/25/2024 Gastric mass 05/25/2024 Basal cell carcinoma (BCC) of right cheek 2023 Basal cell carcinoma (BCC) of scalp 11/02/2023 Encounter for medication review 08/26/2023 Assessment & Plan (08/26/2023 11:20 AM CDT): Medication list reviewed [facility] Discharge planning issues 08/24/2023 Assessment & Plan (08/28/2023 2:50 PM CDT): 08/23: Pending PT/OT, patient is requesting to go home instead of to a facility. 08/24: patient now agreeing to placement; case management to meet with patient this morning 08/25: Patient is medically stable for discharge, SW/CM updated. Discharge pending insurance authorization 08/27: discharged Hypomagnesemia 08/24/2023 Assessment & Plan (08/24/2023 8:44 AM CDT): - Mg 1.7, repleted with Mg sulfate 2gm. AM mg level Hyponatremia 08/24/2023 Assessment & Plan (08/24/2023 1:14 PM CDT): Now resolved Atrial fibrillation 08/22/2023 Assessment & Plan (08/24/2023 9:17 AM CDT): - Home Eliquis held - Home Plavix continued - Home ASA continued - Home metoprolol continued Assessment & Plan (08/22/2023 12:19 AM CDT): - holding home eliquis for OR 5/4 Coronary artery disease 08/22/2023 Assessment & Plan (08/24/2023 6:36 AM CDT): - ASA and plavix continued Assessment & Plan (08/22/2023 12:19 AM CDT): - continuing home ASA, holding plavix Fall, initial encounter 08/21/2023 Assessment & Plan (08/22/2023 10:10 AM CDT): See closed fx of R tibial plateau Closed fracture of right tibial plateau 08/21/19 Assessment & Plan (08/26/2023 11:14 AM CDT): - Non-op per ortho - Hinged knee brace unlocked - NWB - PT/OT recommending IPR - Orthopedic surgery signed off, will follow up with patient as outpatient Assessment & Plan (08/22/2023 12:18 AM CDT): - OR with Ortho planned for 08/21, NWB in bulky knee immobilizer, holding plavix and eliquis, continuing ASA Centrilobular emphysema 09/04/2022 Generalized anxiety disorder 09/04/2022 GERD without esophagitis 09/04/2022 Nonrheumatic aortic valve disorder 09/04/2022 Non-rheumatic aortic stenosis 09/01/2022 PAOD (peripheral arterial occlusive disease) CAD in ione artery 07/24/2022 Atherosclerosis of ione ar teries of extremities with intermittent claudication, bilateral legs 07/16/2022 Overview (07/16/2022): Added automatically from request for surgery [id number] Congestive heart failure 07/16/2022 Overview (07/16/2022): Added automatically from request for surgery [id number] Mitral valve insufficiency and aortic valve insu fficiency 07/16/2022 Overview (07/16/2022): Added automatically from request for surgery [id number] Aftercare following left knee joint replacement surgery 09/05/2020 Atrial fibrillation 08/23/2020 Bilateral primary osteoarthritis of knee 021 Odontogenic tumor 10/11/2019 Choledocholithiasis 08/18/2019 Assessment & Plan (08/18/2019 11:43 AM CDT): ERCP in April 2019 with removal of stones and stent placement. Asymptomatic at this time. Will schedule ERCP to remove the stent. Transaminitis 05/03/2019 Class 1 obesity due to exces s calories without serious comorbidity in adult 05/03/2019 Nausea and vomiting 03/25/2019 Overview (03/25/2019): Added automatically from request for surgery [id number] History of colonic polyps 03/25/2019 Overview (03/25/2019): Added automatically from request for surgery [id number] Basal cell carcinoma (BCC) of right shoulder 01/2018 Basal cell carcinoma (BCC) of lower back 018 Anxiety 05/15/2017 Dyslipidemia 05/15/2017 Tobacco abuse 05/01/2016 Overview (05/15/2017): Tobacco use Mixed hyperlipidemia 04/20/2009 Overview (07/26/2016): Hyperlipidemia, unspecified hyperlipidemia type HTN (hypertension) 04/20/2009 Overview (05/15/2017): Essential hypertension Assessment & Plan (08/24/2023 9:18 AM CDT): - Home metoprolol continued - Home Amlodipine 10 held Mild episode of recurrent major depressive disor jessica 04/20/2009 Overview (07/26/2016): Mild episode of recurrent major depressive disorder Cholecystitis Assessment & Plan (08/18/2019 11:42 AM CDT): Status post cholecystectomy in April 2019. Symptoms resolved. Resolved Problems Problem Noted Date Diagnosed Date Resolved Date Primary osteoarthritis of left knee 08/10/2020 09/05/2020 Overview (08/10/2020): Added automatically from request for surgery [id number] Mild protein-calorie malnutrition 05/04/2019 06/16/2024 Encounters Date Type Department Care Team Description 03/30/2025 Orders Only [facility] Orthopedic [facility] Sports Medicine [address] [place] [phone] Donny Elizondo PA Right knee pain, unspecified chronicity (Primary Dx); Post-traumatic osteoarthritis of right knee 03/29/2025 Telephone [facility] Orthopedics [facility] Sports Medicine [address] [facility] [address] [place] [phone] Santy Kaplan MD right knee; pain mangement referral/ canceled appt from Last 3 Months Immunizations Immunization Administration Dates Next Due Influenza, Quadrivalent, Hig h Dose, Preservative Free, Intrr 02/21/2022 Influenza, Quadrivalent, Spl it, Preservative Free, Intramuscular 05/15/2017 Influenza, Trivalent, High D ose, Split, Preservative Free, Intramuscular 03/31/2019 Influenza, Unspecified 01/18/2021(Deferr ed: Patient Refused),08/14/2020(Deferred: Patient Refused),01/19/2020(Deferred: Patient Refused),04/20/2019(Deferred: Patient Refused),05/15/2017,04/21/2016(Deferre d: Patient Refused),04/20/2016(Deferred: Patient decision) PPD TEST 09/11/2023,08/30/2023 Pneumococcal Conjugate PCV 13 11/30/2017 Pneumococcal Conjugate Pcv20 12/11/2022 Pneumococcal Conjugate, Unspecified 07/20(Deferred: Patient Refused),04/20/2019(Deferred: Patient Refused) Pneumococcal, Unspecified 12/19/2012 Tdap 08/21/2023,03/21/2013 Surgical History Surgery Date Site/Laterality Comments HYSTERECTOMY hysterectomy APPENDECTOMY Appendectomy KNEE ARTHROSCOPY Left CHOLECYSTECTOMY Medical History Medical History Date Comments Hypertension Hypertension Hx Other Medical high cholestero l Hx Other Medical heart murmur Hx Other Medical gerd Hx Other Medical skin cancer; Co mments: ELVIRA 06/16/2014 -skin Hyperlipidemia GERD (gastroesophageal reflux disease) Anxiety Atrial fibrillation (HCC) Cancer (HCC) skin Macular degeneration Family History Medical History Relation Name Comments Diabetes Daughter Diabetes Mother Diabetes mellit us; Hypertension Mother Hypertension; Stroke Mother Stroke; Hypertension Other 1 Family history of Hypertension; Diabetes Other 2 Family history of diabetes; Heart disease Other 3 Family history of heart problems; Stroke Other 4 Family history of Stroke; Arthritis Other 5 Family history of arthritis; Relation Name Status Comments Daughter Alive Mother (Age 89) Other 1 Other 2 Other 3 Other 4 Other 5 Social History Tobacco Use Types Packs/Day Years Used Date Smoking Tobacco: Every Day Cigarettes Last attempted to quit: 07/10/2022 Smokeless Tobacco: Never Tobacco Cessation:Ready to Q uit: Not Asked; Counseling Given: Not Answered Comments:Smoking History Packs/day: 1 Packs Alcohol Use Standard Drinks/Week Comments Never 0 (1 standard drink = 0.6 oz pur e alcohol) Overall Financial Resource Strain (CARDIA) Answe r Date Recorded Difficulty of Paying Living Expenses Somewhat prakash rd 03/29/2019 PHQ-2 Answer Date Recorded PHQ-2 Total Score (If total score is 3 or more points, staff should administer the PHQ-9) 0 02/21/2022 [facility] of Occupat ional Health - Occupational Stress Questionnaire Answer Date Recorded Feeling of Stress Only a little 03/29/2019 Exercise Vital Sign Answer Date Recorde d Days of Exercise per Week 0 days 2018 Minutes of Exercise per Session 0 min 03/29/2019 PRAPARE - Transportation Answer Date Re corded Lack of Transportation (Medical) Yes 05/12/2019 Lack of Transportation (Non-Medical) Yes 05/12/2019 AUDIT-C Answer Date Recorded Q1: How often do you have a drink containing alcohol? Never 12/23/2024 Q2: How many drinks containi ng alcohol do you have on a typical day when you are drinking? Patient does not drink Q3: How often do you have si x or more drinks on one occasion? Never 12/23/2024 Personal Safety Answer Date Recorded Have you ever been in or are you currently in a harmful physical or emotional relationship or is someone making you feel afraid or unsafe? 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 Gender Identity Not on file Sexual Orientation Not on file Occupation Industry Job Start Date Job End Date retired Not on file Not on file Not on file Last Filed Vital Signs Vital Sign Reading Time Taken Comments Blood Pressure 94/79 01/08/2025 12:00 PM CDT Pulse 67 01/08/2025 12:00 PM CDT Temperature 36.3 C (97.4 F) 01/08/2025 12:00 PM CDT Respiratory Rate 18 01/08/2025 12:00 PM CDT Oxygen Saturation 94% 01/08/2025 12:00 PM CDT Inhaled Oxygen Concentration - - Weight 74.8 kg (165 lb) 01/08/2025 9:17 AM CDT Height 157.5 cm (5' 2) 12/23/2024 9:18 AM CDT Body Mass Index 30.18 12/23/2024 9:18 AM CDT Plan of Treatment Upcoming Encounters Date Type Department Care Team (Late st Contact Info) Description 09/01/2025 9:09 AM CDT Hospital Encounter [address] [address] Patrick Velasco MD [address] [place] [address] Prakash Bryan MD [address] [place] [address] 09/01/2025 9:09 AM CDT - 09/01/2025 9:39 AM CDT Surgery [facility] [address] [place] [address] Prakash Bryan MD [address] [place] [address] [address] [place] [address] COLONOSCOPY Scheduled Procedures Name Priority Associated Diagnoses Date/Ti me COLONOSCOPY Colitis History of colonic polyps 09/01/2025 9:09 AM CDT Health Maintenance Due Date Last Done Comments Osteoporosis Screening-Bone Density Scan 1945 Hepatitis B Screening 11/14/1961 Zoster Vaccine (1 of 2) 11/14/1993 Depression Screening 02/21/2023 02/21/2022, 08/16/2021, 10/31/2020, Additional history exists Well Visit 65+ 02/21/2023 02/21/2022, 03/20, 08/30/2018 Influenza Vaccine (#1) 2024 , 03/31/2019, 05/15/2017, Additional history exists Fall Risk Assessment 06/16/2025 06/16/2024, 02/21/2022, 08/16/2021, Additional history exists DTaP/Tdap/Td Vaccine (3 - Td or Tdap) 08/20/2033 08/21/2023, 03/21/2013 Pneumococcal vaccine 65+ Completed 023, 11/30/2017, 12/19/2012 Medical Devices Implanted Type Area Civil Attorney Device Identifier Shelf Expiration Date Model / Serial / Lot [employer] 6195-1-001 Cement Bone Simplex Gentamicin High Viscosity 40gm - [id number] Implanted:Qty: 2 on 08/22/2020 by Koffi Alcazar MD at [facility] Left: Knee [employer] 07/18/2021 6195-1-001 / / [id number] [employer] [id number] Attune S+ Cement Fix Bearing Knee 4 Baseplate Tibial - [id number] Implanted:Qty: 1 on 08/22/2020 by Koffi Alcazar MD at [facility] Left: Knee [employer] 05/20/2030 [id number] / / [id number] [employer] [id number] Attune Cemented Posterior Stabilize Knee Left 4 Component Femoral - [id number] Implanted:Qty: 1 on 08/22/2020 by Koffi Alcazar MD at [facility] Left: Knee [employer] 02/17/2030 [id number] / / [id number] [employer] [id number] Attune 8mm Posterior Stabilize Fix Bearing Knee 4 Insert Tibial - [id number] Implanted:Qty: 1 on 08/22/2020 by Koffi Alcazar MD at [facility] Left: Knee [employer] 08/17/2021 [id number] / / [id number] [employer] Angio-Seal Vip 6fr Closere Device [id number] - [id number] Implanted:Qty: 1 on 07/24/2022 by Luis F Corbin MD at [facility] [employer] Simon 03/19/2023 [id number] / / [id number] Bard Per[employer] V[employer] Lifestream 9mm 38mm 80cm Balloon Expandable Low Profile Cover [id number] - [id number] Implanted:Qty: 1 on 07/24/2022 by Luis F Corbin MD at [facility] [employer] 03/19/2024 [id number] / / [id number] Medtronic Inc Protege Gps Exprt 9mm .079in 60mm 80cm Otw Delivery System Self [id number] - [id number] Implanted:Qty: 1 on 07/24/2022 by Luis F Corbin MD at [facility] Medtronic Inc 12/26/2024 [id number] / / [id number] [employer]ader[employer] MiNOWireless Synergy Xd Monorail 3.5mm 32mm 144cm Delivery System 1 Access [id number] - [id number] Implanted:Qty: 1 on 07/24/2022 by Luis F Corbin MD at [facility] [employer] 12/04/2023 [id number] / / [id number] [employer] MiNOWireless Synergy Xd Monorail 3.5mm 38mm 144cm Delivery System 1 Access [id number] - [id number] Implanted:Qty: 1 on 07/24/2022 by Luis F Corbin MD at [facility] [email or web address] Simon 02/10/2024 [id number] / / [id number] [employer] - It's what's in storeArtabase [facility] Angio-Seal Vip 6fr Closere Device [id number] - [id number] Implanted:Qty: 1 on 07/24/2022 by Luis F Corbin MD at [facility] [employer] - It's what's in storeBizGreet 03/19/2023 [id number] / / [id number] Bard Peripheral Vascular Lifestream 8mm 26mm 80cm Balloon Expandable Low Profile Cover [id number] - [id number] Implanted:Qty: 1 on 07/25/2022 by Luis F Corbin MD at [facility] [employer] 11/11/2023 [id number] / / Medtronic Inc Protege Gps Exprt 9mm .079in 40mm 80cm Otw Delivery System Self [id number] - [id number] Implanted:Qty: 1 on 07/25/2022 by Luis F Corbin MD at [facility] [employer] Inc 02/07/2025 [id number] / / Insurance [facility] MEDICARE ADVANTAGE [facility] Address: [address] [address] [place] [address] [facility] UHC MEDICARE ADVANTAGE [facility] Address: [address] [address] [place] [address] UHC MEDICARE ADVANTAGE Advance Directives For more information, please contact: [phone] * Full Code (Latest Code Status on File) Date Activated Date Inactivated Comments 06/13/2024 10:00 AM 06/16/2024 6:23 PM * Full Code Date Activated Date Inactivated Comments 06/13/2024 9:57 AM 06/13/2024 10:00 AM * Full Code Date Activated Date Inactivated Comments 06/07/2024 9:45 PM 06/13/2024 9:57 AM * Full Code Date Activated Date Inactivated Comments 05/26/2024 1:42 PM 05/27/2024 9:28 PM * Full Code Date Activated Date Inactivated Comments 05/25/2024 3:06 PM 05/26/2024 1:42 PM Care Teams Studio Producer Relationship Specialty Start Date End Date Hira Buchanan MD PCP - General Internal Medicine 08/22/23 Edy Perez MD Consulting Physician General Surgery 05/06/19 Prakash Bryan MD Consulting Physician Gastroenterology 05/06/19 Patrick Velasco MD [address] [place] [address] Consulting Physician Gastroenterology 05/27/24
--- OUTSIDE RECORDS SUMMARY | 2025-04-17 11:10 | XMS_ITS | Encounter Summary ---
Author Organization [facility] Address [address] [place] [address] Phone Care Team Providers Care Welder First Class Name Role Phone Hira Buchanan MD Primary Care Provider [phone] Reason for Visit * Reason Comments Medication Refill Encounter Details Date Type Department Care Team (Late st Contact Info) Description 11/06/2024 Refill [facility] - [facility] - [place] [address] [place] [phone] Hira Buchanan MD [address] [place] [address] Medication Refill Social History Tobacco Use Types Packs/Day Years Used Date Smoking Tobacco: Every Day Cigarettes Passive Smoke Exposure: Current Smokeless Tobacco: Never Alcohol Use Standard Drinks/Week Comments No 0 (1 standard drink = 0.6 oz pur e alcohol) [facility] Utilities Answer Date Recorded In the past 12 months has Minimally invasive devices, gas, oil, or water [employer] threatened to shut off services in your [...] often do you attend chur ch or islam services? Never 07/09/2023 Do you belong to any clubs o r organizations such as denominational groups, unions, fraternal or athletic groups, or [...] [facility] of Occupat ional [facility] - Occupational Stress Questionnaire Answer Date [...] place to sleep or slept in a mcc (including now)? No 07/09/2023 Education Answer Date [...] encounter Miscellaneous Notes * Telephone Encounter - Hue Castro APRN, CNP - 11/09/2024 1:40 PM CDT Why is she requesting a refill? * Telephone Encounter - Alisa Wallis RN - 11/09/2024 1:06 PM CDT Medication failed the protocol, provider to review and approve the medication order if appropriate. Requested Prescriptions Pending Prescriptions Disp Refills traMADol (ULTRAM) 50 MG Tablet [Pharmacy Med Name: traMADol HCl 50 MG Oral Tablet] 21 Tablet 0 Sig: Take 1 Tablet by mouth every 8 hours as needed for Mild or more severe pain. Not Delegated - Opioid Agonists Protocol Failed - 11/09/2024 1:06 PM Failed - This refill cannot be delegated Passed - Visit with relevant provider in past 12 months or upcoming 90 days Recent Visits Date Type Provider Dept 09/22/24 Office Visit Hira Buchanan MD [facility] 07/12/24 Office Visit Hira Buchanan MD [facility] 06/01/24 Telemedicine Hira Buchanan MD [facility] [place] Showing recent visits within past 365 days and meeting all other requirements Future Appointments Date Type Provider Dept 01/05/25 Appointment Hira Buchanan MD [facility] [place] Showing future appointments within next 90 days and meeting all other requirements documented in this encounter Plan of Treatment Upcoming Encounters Date Type Department Care Team (Late st Contact Info) Description 05/17/2025 9:20 AM 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
--- OUTSIDE RECORDS SUMMARY | 2025-04-17 11:10 | XMS_ITS | Encounter Summary ---
Author Organization [facility] Address [address] [place] [address] Phone Care Team Providers Care Supervisor Cook House Name Role Phone Hira Buchanan MD Primary Care Provider [phone] Reason for Visit * Reason Comments Medication Refill Encounter Details Date Type Department Care Team (Late st Contact Info) Description 12/16/2024 Refill [facility] - [facility] - [place] [address] [place] [phone] Hira Buchanan MD [address] [place] [address] Medication Refill Social History Tobacco Use Types Packs/Day Years Used Date Smoking Tobacco: Every Day Cigarettes Passive Smoke Exposure: Current Smokeless Tobacco: Never Alcohol Use Standard Drinks/Week Comments No 0 (1 standard drink = 0.6 oz pur e alcohol) [facility] Utilities Answer Date Recorded In the past 12 months has [employer], gas, oil, or water [employer] threatened to shut off services in your [...] often do you attend chur ch or synagogue services? Never 07/09/2023 Do you belong to any clubs o r organizations such as taoism groups, unions, fraternal or athletic groups, or [...] Score - Questions 1-9 0 06/0 08/2024 [facility] of Occupat ional [facility] - Occupational Stress Questionnaire Answer Date [...] place to sleep or slept in a halfway (including now)? 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
--- OUTSIDE RECORDS SUMMARY | 2025-04-17 11:10 | XMS_ITS ---
Author Organization [facility] [address] [facility] lto Address [address] [place] [address] Care Team Providers Care Shop Director Name Role Phone Edy Perez MD Unavailable Prakash Bryan MD Unavailable [phone] Hira Buchanan MD Primary Care Provider [phone] Patrick Velasco MD Unavailable Active Problems Problem Noted Date Diagnosed Date Mild malnutrition 06/16/2024 Constipation 06/08/2024 Colitis 06/08/2024 Abdominal pain 06/07/[address] of the abdomen 05/27/2024 Hypokalemia 05/26/2024 Gastroenteritis 05/25/2024 Gastric mass 05/25/2024 Basal cell carcinoma (BCC) of right cheek 2023 Basal cell carcinoma (BCC) of scalp 11/02/2023 Encounter for medication review 08/26/2023 Assessment & Plan (08/26/2023 11:20 AM CDT): Medication list reviewed [facility] Discharge planning issues 08/24/2023 Assessment & Plan [...] CDT): - holding home eliquis for OR 08/21 Coronary artery disease 08/22/2023 Assessment & Plan [...] PAOD (peripheral arterial occlusive disease) CAD in circle artery 07/24/2022 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, bilateral legs 07/16/2022 Overview (07/16/2022): Added automatically from request for surgery [id number] Congestive heart failure 07/16/2022 Overview (07/16/2022): Added automatically from request for surgery [id number] Mitral valve insufficiency and aortic valve insu fficiency 07/16/2022 Overview (07/16/2022): Added automatically from request for surgery [id number] Aftercare following left knee joint replacement surgery [...] (03/25/2019): Added automatically from request for surgery [id number] History of colonic polyps 03/25/2019 Overview (03/25/2019): Added automatically from request for surgery [id number] Basal cell carcinoma (BCC) of right shoulder [...] post cholecystectomy in April 2019. Symptoms resolved. Current Treatment and Therapy Plans No current plan information found. Past Treatment and Therapy Plans No past plan information found. Lifetime Dose Tracking * Chemical Lifetime Dose Automatic Entry Manual Entr y Fluoro Time 43.059 minutes 7.759 minutes 35.3 minutes Air kerma at the reference p oint (Ka,r) 4,426.51 mGy 128.51 mGy 4,298 mGy DAP 36,296.95 Gy-cm2 0 Gy-cm2 36,296.95 G y-cm2 Resolved Problems Problem Noted Date Diagnosed Date Resolved Date Primary osteoarthritis of left knee 08/10/2020 09/05/2020 Overview (08/10/2020): Added automatically from request for surgery [id number] Mild protein-calorie malnutrition 05/04/2019 06/16/2024
--- OUTSIDE RECORDS SUMMARY | 2025-04-17 11:10 | XMS_ITS | Encounter Summary ---
Author Organization [facility] Address [address] [place] [address] Phone Care Team Providers Care Manager Military Name Role Phone Hira Buchanan MD Primary Care Provider [phone] Reason for Visit * Reason Comments Medication Refill Encounter Details Date Type Department Care Team (Late st Contact Info) Description 05/15/2024 Refill [facility] - [facility] - [place] [address] [place] [phone] Hira Buchanan MD [address] [place] [address] Medication Refill Social History Tobacco Use Types Packs/Day Years Used Date Smoking Tobacco: Every Day Cigarettes Passive Smoke Exposure: Current Smokeless Tobacco: Never Alcohol Use Standard Drinks/Week Comments No 0 (1 standard drink = 0.6 oz pur e alcohol) [facility] Utilities Answer Date Recorded In the past 12 months has [employer], gas, oil, or water [employer] threatened to shut off services in your [...] often do you attend chur ch or yarsani services? Never 07/09/2023 Do you belong to any clubs o r organizations such as catholic groups, unions, fraternal or athletic groups, or [...] Total Score - Questions 1-9 0 08/18 [facility] of Occupat ional [facility] - Occupational Stress Questionnaire Answer Date Recorded [...] place to sleep or slept in a custodial (including now)? No 07/09/2023 Education Answer Date [...] Telephone Encounter - Alisa Wallis RN - 05/16/2024 8:47 AM CST Medication failed the protocol, provider to review and approve the medication order if appropriate. Requested Prescriptions Pending Prescriptions Disp Refills omeprazole (PriLOSEC) 20 MG CAPSULE DELAYED RELEASE [Pharmacy Med Name: Omeprazole 20 MG Oral Capsule Delayed Release] 90 Capsule 0 Sig: Take 1 capsule by mouth once daily Proton Pump Inhibitors Protocol Passed - 05/16/2024 8:47 AM Passed - Visit with relevant provider in past 12 months or upcoming 90 days Recent Visits Date Type Provider Dept 10/09/23 Office Visit Fior Ocampo PAC [facility] [place] 07/09/23 Office Visit Hira Buchanan MD [facility] Showing recent visits within past 365 days and meeting all other requirements Future Appointments No visits were found meeting these conditions. Showing future appointments within next 90 days and meeting all other requirements metOLazone (ZAROXOLYN) 2.5 MG Tablet [Pharmacy Med Name: metOLazone 2.5 MG Oral Tablet] 45 Tablet 0 Sig: TAKE 1 TABLET BY MOUTH EVERY OTHER DAY Diuretics Protocol Failed - 05/16/2024 8:47 AM Failed - Serum potassium on record in past 12 months No results found for: POTASSIUM, POCTK Failed - Serum sodium on record in past 12 months No results found for: SODIUM Failed - GFR on record in past 12 months No results found for: GFRNA Passed - Blood pressure on record in past 12 months Clinician-entered: BP Readings from Last 3 Encounters: 10/09/23 136/66 07/09/23 110/66 12/11/22 110/64 Patient-entered: No data recorded Passed - Visit with relevant provider in past 12 months or upcoming 90 days Recent Visits Date Type Provider Dept 10/09/23 Office Visit Fior Ocampo, [facility] 07/09/23 Office Visit Hira Buchanan MD [facility] Showing recent visits within past 365 days and meeting all other requirements Future Appointments No visits were found meeting these conditions. Showing future appointments within next 90 days and meeting all other requirements traMADol (ULTRAM) 50 MG Tablet [Pharmacy Med Name: traMADol HCl 50 MG Oral Tablet] 60 Tablet 0 Sig: Take 1 Tablet by mouth every 8 hours as needed for Mild or more severe pain. Not Delegated - Opioid Agonists Protocol Failed - 05/16/2024 8:47 AM Failed - This refill cannot be delegated Passed - Visit with relevant provider in past 12 months or upcoming 90 days Recent Visits Date Type Provider Dept 10/09/23 Office Visit Fior Ocampo, [facility] 07/09/23 Office Visit Hira Buchanan MD [facility] Showing recent visits within past 365 days and meeting all other requirements Future Appointments No visits were found meeting these conditions. Showing future appointments within next 90 days and meeting all other requirements ET DEVELOPER documented in this encounter Plan of Treatment Upcoming Encounters Date Type Department Care Team (Late st Contact Info) Description 05/17/2025 9:20 AM ASPNET DEVELOPER Office Visit [facility] - Primary Care - [place] [address] [place] [address] Hira Buchanan MD [address] [place] [address] documented as of this encounter Visit Diagnoses Diagnosis Right knee pain, unspecified chronicity documented in this encounter Additional Health Concerns Infection Onset Date Last Indicated Resolved Time COVID - 19 06/03/2024 06/03/2024 06/03/2024 1:06 PM ASPNET DEVELOPER Assessment Noted Time PHQ-9 Depression Total Score: 0 09/05/19 8:00 AM CDT documented as of this encounter Care Teams Manager Military Relationship Specialty Start Date End Date Hira Buchanan MD PCP - General Internal Medicine 09/04/22 documented as of this encounter
--- OUTSIDE RECORDS SUMMARY | 2025-04-17 11:10 | XMS_ITS | Encounter Summary ---
Author Organization [facility] Address [address] [place] [address] Phone Care Team Providers Care Cabinetmaker Maintenance Name Role Phone Hira Buchanan MD Primary Care Provider [phone] Reason for Visit * Reason Comments Medication Refill Encounter Details Date Type Department Care Team (Late st Contact Info) Description 03/18/2024 Refill [facility] - [place] [address] [place] [phone] Hira Buchanan MD [address] [place] [address] Medication Refill Social History Tobacco Use Types Packs/Day Years Used Date Smoking Tobacco: Every Day Cigarettes Passive Smoke Exposure: Current Smokeless Tobacco: Never Alcohol Use Standard Drinks/Week Comments No 0 (1 standard drink = 0.6 oz pur e alcohol) [facility] Utilities Answer Date Recorded In the past 12 months has [employer], gas, oil, or water [employer] threatened to shut off services in your [...] often do you attend chur ch or church services? Never 07/09/2023 Do you belong to any clubs o r organizations such as sikh groups, unions, fraternal or athletic groups, or [...] Total Score - Questions 1-9 0 08/18 [facility] of Occupat ional [facility] - Occupational Stress Questionnaire Answer [...] place to sleep or slept in a [place] health care facility (including now)? No 07/09/2023 Education Answer Date [...] Telephone Encounter - Alisa Wallis RN - 03/21/2024 8:41 AM CST Medication failed the protocol, provider to review and approve the medication order if appropriate. Requested Prescriptions Pending Prescriptions Disp Refills busPIRone (BUSPAR) 5 MG Tablet [Pharmacy Med Name: busPIRone HCl 5 MG Oral Tablet] 270 Tablet 0 Sig: TAKE 1 TABLET BY MOUTH THREE TIMES DAILY Buspirone (6 Month Refill Only) Protocol Failed - 03/18/2024 6:51 AM Failed - Has an encounter in the past 6 months with a depression or anxiety visit diagnosis Passed - Visit with relevant provider in past 6 months or upcoming 90 days Recent Visits Date Type Provider Dept 10/09/23 Office Visit Fior Ocampo, [facility] [place] Showing recent visits within past 182 days and meeting all other requirements Future Appointments No visits were found meeting these conditions. Showing future appointments within next 90 days and meeting all other requirements Passed - Patient has established therapy with Buspirone for at least 6 months R CORRECTOR documented in this encounter Plan of Treatment Upcoming Encounters Date Type Department Care Team (Late st Contact Info) Description 05/17/2025 9:20 AM COLOR CORRECTOR Office Visit [facility] - Primary Care - [place] [address] [place] [address] Hira Buchanan MD [address] [place] [address] documented as of this encounter Visit Diagnoses Not on filedocumented in this encounter Additional Health Concerns Infection Onset Date Last Indicated Resolved Time COVID - 19 06/03/2024 06/03/2024 06/03/2024 1:06 PM COLOR CORRECTOR Assessment Noted Time PHQ-9 Depression Total Score: 0 09/05/19 8:00 AM CDT documented as of this encounter Care Teams Cabinetmaker Maintenance Relationship Specialty Start Date End Date Hira Buchanan MD PCP - General Internal Medicine 09/04/22 documented as of this encounter
--- OUTSIDE RECORDS SUMMARY | 2025-04-17 11:10 | XMS_ITS | Encounter Summary ---
Author Organization [facility] Address [address] [place] [address] Phone Care Team Providers Care Claims Examiner Name Role Phone Hira Buchanan MD Primary Care Provider [phone] Reason for Visit * Reason Comments Medication Refill Encounter Details Date Type Department Care Team (Late st Contact Info) Description 05/31/2023 Refill [facility] - [place] [address] [place] [phone] Hira Buchanan MD [address] [place] [address] Medication Refill Social History Tobacco [...] Telephone Encounter - Alisa Wallis RN - 06/01/2023 9:04 AM CST Medication failed the protocol, provider to review and approve the medication order if appropriate. Requested Prescriptions Pending Prescriptions Disp Refills traZODone (DESYREL) 50 MG Tablet [Pharmacy Med Name: traZODone HCl 50 MG Oral Tablet] 90 Tablet 0 Sig: Take 1 Tablet by mouth nightly as needed for Sleep. Serotonin Modulators (6 Month Refill Only) Protocol Failed - 05/31/2023 10:39 AM Failed - No PRN Use for Trazodone Passed - Visit with relevant provider in past 6 months or upcoming 90 days Recent Visits Date Type Provider Dept 12/11/22 Office Visit Hira Buchanan MD [facility] [place] Showing recent visits within past 182 days and meeting all other requirements Future Appointments No visits were found meeting these conditions. Showing future appointments within next 90 days and meeting all other requirements Passed - Has an encounter in the past 6 months with a depression or anxiety visit diagnosis Passed - Patient has established therapy with Serotonin Modulators for at least 6 months citalopram (CeleXA) 20 MG Tablet [Pharmacy Med Name: Citalopram Hydrobromide 20 MG Oral Tablet] 90 Tablet 0 Sig: Take 1 tablet by mouth once daily Citalopram (Celexa) (6 Month Refill Only) Protocol Passed - 05/31/2023 10:39 AM Passed - Citalopram dose is less than or equal to 40mg / day Passed - Visit with relevant provider in past 6 months or upcoming 90 days Recent Visits Date Type Provider Dept 12/11/22 [facility] [place] Showing recent visits within past 182 days and meeting all other requirements Future Appointments No visits were found meeting these conditions. Showing future appointments within next 90 days and meeting all other requirements Passed - Patient has established therapy with Citalopram for at least 6 months Passed - Has an encounter in the past 6 months with a depression, anxiety, adjustment disorder, OCD, or PTSD visit diagnosis TECH documented in this encounter Plan of Treatment Upcoming Encounters Date Type Department Care Team (Late st Contact Info) Description 05/17/2025 9:20 AM ECHO TECH Office Visit [facility] - Primary Care - [place] [address] [place] [phone] Hira Buchanan MD [address] [place] [address] documented as of this encounter Visit Diagnoses Not on filedocumented in this encounter Additional Health Concerns Infection Onset Date Last Indicated Resolved Time COVID - 19 06/03/2024 06/03/2024 06/03/2024 1:06 PM ECHO TECH Assessment Noted Time PHQ-9 Depression Total Score: 0 09/05/19 8:00 AM CDT documented as of this encounter Care Teams Claims Examiner Relationship Specialty Start Date End Date Hira Buchanan MD PCP - General Internal Medicine 09/04/22 documented as of this encounter
--- OUTSIDE RECORDS SUMMARY | 2025-04-17 11:10 | XMS_ITS | Encounter Summary ---
Author Organization [facility] Address [address] [place] [address] Phone Care Team Providers Care Roll Up Machine Operator Name Role Phone Hira Buchanan MD Primary Care Provider [phone] Reason for Visit * Reason Comments Medication Refill Encounter Details Date Type Department Care Team (Late st Contact Info) Description 05/25/2023 Refill [facility] - [facility] - [place] [address] [place] [phone] Hira Buchanan MD [address] [place] [address] Medication Refill Social History [...] Telephone Encounter - Alisa Wallis RN - 05/26/2023 8:44 AM CST Medication failed the protocol, provider to review and approve the medication order if appropriate. Requested Prescriptions Pending Prescriptions Disp Refills atorvastatin (LIPITOR) 40 MG Tablet [Pharmacy Med Name: Atorvastatin Calcium 40 MG Oral Tablet] 90 Tablet 0 Sig: Take 1 Tablet by mouth nightly. Hmg CoA Reductase Inhibitors Protocol Failed - 05/25/2023 5:20 PM Failed - Lipid panel in past [...] Dept 12/11/22 [facility] Show[facility] recent visits within past 365 days and meeting all other requirements Future Appointments No visits were found meeting these conditions. Showing future appointments within next 90 days and meeting all other requirements omeprazole (PriLOSEC) 40 MG CAPSULE DELAYED RELEASE [Pharmacy Med Name: Omeprazole 40 MG Oral Capsule Delayed Release] 90 Capsule 0 Sig: Take 1 capsule by mouth once daily Proton Pump Inhibitors Protocol Passed - 05/25/2023 5:20 PM Passed - Visit with relevant provider in past 12 months or upcoming 90 days Recent Visits Date Type Provider Dept 12/11/22 Office Visit Hira Buchanan MD [facility] [place] 09/04/22 [facility] Show[facility] recent visits within past 365 days and meeting all other requirements Future Appointments No visits were found meeting these conditions. Showing future appointments within next 90 days and meeting all other requirements citalopram (CeleXA) 20 MG Tablet [Pharmacy Med Name: Citalopram Hydrobromide 20 MG Oral Tablet] 90 Tablet 0 Sig: Take 1 tablet by mouth once daily Citalopram (Celexa) (6 Month Refill Only) Protocol Passed - 05/25/2023 5:20 PM Passed - Citalopram dose is less than or equal to 40mg / day Passed - Visit with relevant provider in past 6 months or upcoming 90 days Recent Visits Date Type Provider Dept 12/11/22 Office Visit Hira Buchanan MD [facility] [place] Showing recent visits within past 182 days [...] adjustment disorder, OCD, or PTSD visit diagnosis amLODIPine (NORVASC) 10 MG Tablet [Pharmacy Med Name: amLODIPine Besylate 10 MG Oral Tablet] 90 Tablet 0 Sig: Take 1 tablet by mouth once daily Calcium-Channel Blockers Protocol Passed - 05/25/2023 5:20 PM Passed - BP on record in the past year Clinician-entered: BP Readings from Last 3 Encounters: 12/11/22 110/64 09/04/22 110/62 03/30/22 102/57 Patient-entered: No data recorded Passed - Visit with relevant provider in past 12 months or upcoming 90 days Recent Visits Date Type Provider Dept 12/11/22 Office Visit Hira Buchanan MD [facility] 09/04/22 Office Visit [facility] Showing recent visits within past 365 days and meeting all other requirements Future Appointments No visits were found meeting these conditions. Showing future appointments within next 90 days and meeting all other requirements ONAL SALES LEADER documented in this encounter Plan of Treatment Upcoming Encounters Date Type Department Care Team (Late st Contact Info) Description 05/17/2025 9:20 AM REGIONAL SALES LEADER Office Visit [facility] - Primary Care - [place] [address] [place] [address] Hira Buchanan MD [address] [place] [address] documented as of this encounter Visit Diagnoses Not on filedocumented in this encounter Additional Health Concerns Infection Onset Date Last Indicated Resolved Time COVID - 19 06/03/2024 06/03/2024 06/03/2024 1:06 PM REGIONAL SALES LEADER Assessment Noted Time PHQ-9 Depression Total Score: 0 09/05/19 8:00 AM CDT documented as of this encounter Care Teams Roll Up Machine Operator Relationship Specialty Start Date End Date Hira Buchanan MD PCP - General Internal Medicine 09/04/22 documented as of this encounter
--- OUTSIDE RECORDS SUMMARY | 2025-04-17 11:10 | XMS_ITS | Encounter Summary ---
Author Organization [facility] Address [address] [place] [address] Phone Care Team Providers Care Installation Helper Name Role Phone Hira Buchanan MD Primary Care Provider [phone] Reason for Visit * Reason Comments Medication Refill Encounter Details Date Type Department Care Team (Late st Contact Info) Description 06/05/2023 Refill [facility] - [place] [address] [place] [phone] Hira Buchanan MD [address] [place] [address] Medication Refill Social History Tobacco [...] Telephone Encounter - Alisa Wallis RN - 06/05/2023 9:42 AM CST Medication failed the protocol, provider to review and approve the medication order if appropriate. Requested Prescriptions Pending Prescriptions Disp Refills furosemide (LASIX) 20 MG Tablet [Pharmacy Med Name: Furosemide 20 MG Oral Tablet] 90 Tablet 0 Sig: Take 1 tablet by mouth once daily Diuretics Protocol Failed - 06/05/2023 9:15 AM Failed - Serum potassium on record [...] Dept 12/11/22 [facility] [place] 09/[facility]22 Office Visit Hira Buchanan MD [facility] Showing recent visits within past 365 days and meeting all other requirements Future Appointments No visits were found meeting these conditions. Showing future appointments within next 90 days and meeting all other requirements GER MARITIME documented in this encounter Plan of Treatment Upcoming Encounters Date Type Department Care Team (Late st Contact Info) Description 05/17/2025 9:20 AM MANAGER MARITIME Office Visit [facility] - Primary Care - [place] [address] [place] [phone] Hira Buchanan MD [address] [place] [address] documented as of this encounter Visit Diagnoses Not on filedocumented in this encounter Additional Health Concerns Infection Onset Date Last Indicated Resolved Time COVID - 19 06/03/2024 06/03/2024 06/03/2024 1:06 PM MANAGER MARITIME Assessment Noted Time PHQ-9 Depression Total Score: 0 09/05/19 8:00 AM CDT documented as of this encounter Care Teams Installation Helper Relationship Specialty Start Date End Date Hira Buchanan MD PCP - General Internal Medicine 09/04/22 documented as of this encounter
--- OUTSIDE RECORDS SUMMARY | 2025-04-17 11:10 | XMS_ITS | Encounter Summary ---
Author Organization [facility] Address [address] [place] [address] Phone Care Team Providers Care Paradi Operator Name Role Phone Hira Buchanan MD Primary Care Provider [phone] Reason for Visit * Reason Comments Medication Refill Encounter Details Date Type Department Care Team (Late st Contact Info) Description 07/26/2023 Refill [facility] - Internal Medicine - [place] [address] [place] [id number] Hira Buchanan MD [address] [place] [address] Medication Refill Social History Tobacco Use Types Packs/Day Years Used Date Smoking Tobacco: Every Day Cigarettes Passive Smoke Exposure: Current Smokeless Tobacco: Never Alcohol Use Standard Drinks/Week Comments No 0 (1 standard drink = 0.6 oz pur e alcohol) [facility] Utilities Answer Date Recorded In the past 12 months has [employer], gas, oil, or water [employer] threatened to shut off services in your [...] often do you attend chur ch or adventist services? Never 07/09/2023 Do you belong to [...] Total Score - Questions 1-9 0 08/18 [facility] - Occupational Stress Questionnaire Answer Date [...] Telephone Encounter - Alisa Wallis RN - 07/27/2023 8:28 AM CDT Medication(s) refilled and signed per [facility] Chronic Medication Refill Standing Order for Pediatricand Adult Patients. Requested Prescriptions Pending Prescriptions Disp Refills metoprolol tartrate (LOPRESSOR) 50 MG Tablet [Pharmacy Med Name: Metoprolol Tartrate 50 MG Oral Tablet] 60 Tablet 0 Sig: Take 1 tablet by mouth twice daily Beta-Blockers Protocol Passed - 07/26/2023 7:50 AM Passed - BP on record in the past year Clinician-entered: BP Readings from Last 3 Encounters: 07/09/23 110/66 12/11/22 110/64 09/04/22 110/62 Patient-entered: No data recorded Passed - Visit with relevant provider in past 12 months or upcoming 90 days Recent Visits Date Type Provider Dept 07/09/23 Office Visit Hira Buchanan MD [facility] 12/11/22 Office Visit Hira Buchanan MD [facility] 09/04/22 Office Visit [facility] Showing recent visits within past 365 days and meeting all other requirements Future Appointments No visits were found meeting these conditions. Showing future appointments within next 90 days and meeting all other requirements documented in this encounter Plan of Treatment Upcoming Encounters Date Type Department Care Team (Late st Contact Info) Description 05/17/2025 9:20 AM [facility] Office Visit [facility] - [place] [address] [place] [address] Hira Buchanan MD [address] [place] [address] documented as of this encounter Visit Diagnoses Not on filedocumented in this encounter Additional Health Concerns Infection Onset Date Last Indicated Resolved Time COVID - 19 06/03/2024 06/03/2024 06/03/2024 1:06 PM [facility] Assessment Noted Time PHQ-9 Depression Total Score: 0 09/05/19 8:00 AM CDT documented as of this encounter Care Teams Paradi Operator Relationship Specialty Start Date End Date Hira Buchanan MD PCP - General Internal Medicine 09/04/22 documented as of this encounter
--- OUTSIDE RECORDS SUMMARY | 2025-04-17 11:10 | XMS_ITS | Encounter Summary ---
Author Organization [facility] Address [address] [place] [address] Phone Care Team Providers Care County Agent Name Role Phone Hira Buchanan MD Primary Care Provider [phone] Reason for Visit * Reason Comments Medication Refill Encounter Details Date Type Department Care Team (Late st Contact Info) Description 04/04/2024 Refill [facility] - Internal Medicine - [place] [address] [place] [phone] Fior Ocampo, [facility] [address] [place] [address] Medication Refill Social History Tobacco Use Types Packs/Day Years Used Date Smoking Tobacco: Every Day Cigarettes Passive Smoke Exposure: Current Smokeless Tobacco: Never Alcohol Use Standard Drinks/Week Comments No 0 (1 standard drink = 0.6 oz pur e alcohol) [facility] Utilities Answer Date Recorded In the past 12 months has [employer], gas, oil, or water [employer] threatened to shut off services in your [...] often do you attend chur ch or sikhism services? Never 07/09/2023 Do you belong to any clubs o r organizations such as lutheran groups, unions, fraternal or athletic groups, or [...] Total Score - Questions 1-9 0 08/18 [facility] - Occupational Stress Questionnaire Answer Date [...] place to sleep or slept in a longterm (including now)? No 07/09/2023 Education Answer Date [...] st Contact Info) Description 05/17/2025 9:20 AM [facility] Office Visit [facility] - [facility] - [place] [address] [place] [address] Hira Buchanan MD [address] [place] [address] documented as of this encounter Visit Diagnoses Not on filedocumented in this encounter Additional Health Concerns Infection Onset Date Last Indicated Resolved Time COVID - 19 06/03/2024 06/03/2024 06/03/2024 1:06 PM [facility] Assessment Noted Time PHQ-9 Depression Total Score: 0 09/05/19 8:00 AM CDT documented as of this encounter Care Teams County Agent Relationship Specialty Start Date End Date Hira Buchanan MD PCP - General Internal Medicine 09/04/22 documented as of this encounter
[2025-04-17 11:22] LABS: EDUAAPPEAR Cloudy; EDUABILI Negative (Negative); EDUABLOOD 1+ (Negative); EDUACOLOR1 Yellow; EDUAGLUCOSE Negative (Negative); EDUAKETONE Negative (Negative); EDUALEUKO 2+ (Negative); EDUANITRATE Positive (Negative); EDUAPH 6.0; EDUAPROTEIN 1+ (Negative); EDUASPGRAVITY 1.025; EDUAUROBILI 0.2
[2025-04-17 12:00] VITALS: BP 100/46
== END 2025-04-17 12:05 | disposition home or self-care (01) ==
PROVIDERS: Emergency Provider Registered Nurse; PCP Family Medicine
DX: M19.011 Primary osteoarthritis, right shoulder (principal); N39.0 Urinary tract infection, site not specified; K21.9 Gastro-esophageal reflux disease without esophagitis; I10 Essential (primary) hypertension; I50.9 Heart failure, unspecified; J44.9 Chronic obstructive pulmonary disease, unspecified; Z90.49 Acquired absence of other specified parts of digestive tract; F17.210 Nicotine dependence, cigarettes, uncomplicated
CPT/HCPCS: 73030; 81003; 87077; 87086; 87186; 99213; G0463